=== PATIENT | male | born 1955 | race Caucasian/White ===

== ENCOUNTER 2021-04-15 12:31 | Inpatient (IN) | payer SELFPAY ==
[2021-04-15] MEDS ORDERED: SODIUM CHLORIDE 0.9% 1,000 ML IV STA (12:50)
--- NOTE | 2021-04-15 12:55 | ED ---
General Adult HPI - General Chief complaint: Weakness Stated complaint: Neuro Symptoms Time Seen by Provider: 04/15/21 12:35 Source: patient, RN notes reviewed, old records reviewed Mode of arrival: ambulatory Limitations: no limitations - History of Present Illness Initial comments: This is a 65-year-old male presents emergency department with his 2 sons. Son states for at least a month she's had left leg weakness and slurred speech is been ongoing for at least a month as well patient has refused to come to the emergency department. Patient is a drinker. Patient also is a smoker. Son states she's lost 30 patient denies any pounds over the last 6 months. Patient denies any headache patient denies any upper extremity weakness. Patient denies chest pain palpitations and he is denying shortness of breath but son states he does appear more short of breath than normal. Patient denies any abdominal pain. Patient doesn't believe he lost much weight his son states but he does look very cachectic. Patient denies any recent fever chills. Patient denies any drug use. Patient's main complaint now is slurred speech and left leg weakness. - Related Data Home Medications Medication Instructions Recorded Confirmed amLODIPine BESYLATE/BENAZEPRIL 1 cap PO DAILY 04/15/21 04/15/21 [Lotrel 10-20 MG] Allergies Allergy/AdvReac Type Severity Reaction Status Date / Time No Known Allergies Allergy Verified 04/15/21 14:08 Review of Systems ROS Statement: Those systems with pertinent positive or pertinent negative responses have been documented in the HPI. ROS Other: All systems not noted in ROS Statement are negative. Past Medical History Past Medical History: CVA/TIA, Hypertension History of Any Multi-Drug Resistant Organisms: None Reported Past Surgical History: No Surgical Hx Reported Past Psychological History: No Psychological Hx Reported Smoking Status: Current every day smoker Past Alcohol Use History: Daily Past Drug Use History: None Reported General Exam - General Exam Comments Initial Comments: GENERAL: Patient is well-developed and well-nourished. Patient is nontoxic and well- hydrated and is in mild distress. ENT: Neck is soft and supple. No significant lymphadenopathy is noted. Oropharynx is clear. Moist mucous membranes. Neck has full range of motion without eliciting any pain. EYES: The sclera were anicteric and conjunctiva were pink and moist. Extraocular movements were intact and pupils were equal round and reactive to light. Eyelids were unremarkable. PULMONARY: Unlabored respirations. Good breath sounds bilaterally. No audible rales rhonchi or wheezing was noted. CARDIOVASCULAR: There is a regular rate and rhythm without any murmurs gallops or rubs. ABDOMEN: Soft and nontender with normal bowel sounds. SKIN: Skin is clear with no lesions or rashes and otherwise unremarkable. NEUROLOGIC: Patient is alert and oriented x3. Patient has slurred speech. Patient's cranial nerves II through XII are grossly intact. Patient's left leg has no dorsi and plantar flexion and his weakness at the hip MUSCULOSKELETAL: Patient has weakness of the left leg. LYMPHATICS: No significant lymphadenopathy is noted PSYCHIATRIC: Normal psychiatric evaluation. Limitations: no limitations Course Vital Signs 04/15/21 04/15/21 04/15/21 12:33 14:01 15:06 Temperature 97.8 F Pulse Rate 98 98 110 H Respiratory 18 18 18 Rate Blood Pressure 138/82 158/89 139/92 O2 Sat by Pulse 95 93 L 92 L Oximetry Medical Decision Making - Medical Decision Making EKG shows a normal sinus rhythm at 97 bpm VA interval is on a 38 QRS is 70 QT interval 332 QTC is 421. Patient's EKG shows no ST segment elevation or depression. Patient's CAT scan shows no acute abnormality. Patient's x-ray the chest shows no acute abnormalities. I spoke with some physicians Dr. hermosillo in bed and he agreed to admit the patient admitted the patient wrote admitting orders and consult neurology. - Lab Data Result diagrams: 04/15/21 13:15 04/15/21 13:15 Lab Results 04/15/21 04/15/21 04/15/21 Range/Units 13:15 13:15 13:15 WBC 8.1 (3.8-10.6) k/uL RBC 4.90 (4.30-5.90) m/uL Hgb 16.1 (13.0-17.5) gm/dL Hct 46.4 (39.0-53.0) % MCV 94.8 (80.0-100.0) fL MCH 32.9 (25.0-35.0) pg MCHC 34.7 (31.0-37.0) g/dL RDW 13.3 (11.5-15.5) % Plt Count 284 (150-450) k/uL MPV 6.4 Neutrophils % 74 % Lymphocytes % 15 % Monocytes % 7 % Eosinophils % 1 % Basophils % 1 % Neutrophils # 6.0 (1.3-7.7) k/uL Lymphocytes # 1.2 (1.0-4.8) k/uL Monocytes # 0.6 (0-1.0) k/uL Eosinophils # 0.1 (0-0.7) k/uL Basophils # 0.1 (0-0.2) k/uL PT 10.1 (9.0-12.0) sec INR 0.9 (<1.2) APTT 25.4 (22.0-30.0) sec Sodium (137-145) mmol/L Potassium (3.5-5.1) mmol/L Chloride (98-107) mmol/L Carbon Dioxide (22-30) mmol/L Anion Gap mmol/L BUN (9-20) mg/dL Creatinine (0.66-1.25) mg/dL Est GFR (CKD-EPI)AfAm (>60 ml/min/1.73 sqM) Est GFR (CKD-EPI)NonAf (>60 ml/min/1.73 sqM) Glucose (74-99) mg/dL Plasma Lactic Acid Shree (0.7-2.0) mmol/L Calcium (8.4-10.2) mg/dL Magnesium (1.6-2.3) mg/dL Total Bilirubin (0.2-1.3) mg/dL AST (17-59) U/L ALT (4-49) U/L Alkaline Phosphatase (38-126) U/L Ammonia (<30) umol/L Troponin I (0.000-0.034) ng/mL Total Protein (6.3-8.2) g/dL Albumin (3.5-5.0) g/dL Urine Color Light Yellow Urine Appearance Cloudy (Clear) Urine pH 7.0 (5.0-8.0) Ur Specific [place] 1.010 (1.001-1.035) Urine Protein Negative (Negative) Urine Glucose (UA) Negative (Negative) Urine Ketones Negative (Negative) Urine Blood Negative (Negative) Urine Nitrite Negative (Negative) Urine Bilirubin Negative (Negative) Urine Urobilinogen <2.0 (<2.0) mg/dL Ur Leukocyte Esterase Negative (Negative) Urine RBC 1 (0-5) /hpf Urine WBC 2 (0-5) /hpf Ur Squamous Epith Cells <1 (0-4) /hpf Amorphous Sediment Rare H (None) /hpf Urine Mucus Rare H (None) /hpf Urine Opiates Screen (NotDetected) Ur Oxycodone Screen (NotDetected) Urine Methadone Screen (NotDetected) Ur Propoxyphene Screen (NotDetected) Ur Barbiturates Screen (NotDetected) U Tricyclic Antidepress (NotDetected) Ur Phencyclidine Scrn (NotDetected) Ur Amphetamines Screen (NotDetected) U Methamphetamines Scrn (NotDetected) U Benzodiazepines Scrn (NotDetected) Urine Cocaine Screen (NotDetected) U Marijuana (THC) Screen (NotDetected) 04/15/21 04/15/21 04/15/21 Range/Units 13:15 13:15 13:15 WBC (3.8-10.6) k/uL RBC (4.30-5.90) m/uL Hgb (13.0-17.5) gm/dL Hct (39.0-53.0) % MCV (80.0-100.0) fL MCH (25.0-35.0) pg MCHC (31.0-37.0) g/dL RDW (11.5-15.5) % Plt Count (150-450) k/uL MPV Neutrophils % % Lymphocytes % % Monocytes % % Eosinophils % % Basophils % % Neutrophils # (1.3-7.7) k/uL Lymphocytes # (1.0-4.8) k/uL Monocytes # (0-1.0) k/uL Eosinophils # (0-0.7) k/uL Basophils # (0-0.2) k/uL PT (9.0-12.0) sec INR (<1.2) APTT (22.0-30.0) sec Sodium 130 L (137-145) mmol/L Potassium 4.8 (3.5-5.1) mmol/L Chloride 91 L (98-107) mmol/L Carbon Dioxide 37 H (22-30) mmol/L Anion Gap 2 mmol/L BUN 8 L (9-20) mg/dL Creatinine 0.33 L (0.66-1.25) mg/dL Est GFR (CKD-EPI)AfAm >90 (>60 ml/min/1.73 sqM) Est GFR (CKD-EPI)NonAf >90 (>60 ml/min/1.73 sqM) Glucose 110 H (74-99) mg/dL Plasma Lactic Acid Shree 1.3 (0.7-2.0) mmol/L Calcium 9.9 (8.4-10.2) mg/dL Magnesium 2.0 (1.6-2.3) mg/dL Total Bilirubin 0.8 (0.2-1.3) mg/dL AST 33 (17-59) U/L ALT 18 (4-49) U/L Alkaline Phosphatase 57 (38-126) U/L Ammonia <9 (<30) umol/L Troponin I <0.012 (0.000-0.034) ng/mL Total Protein 7.2 (6.3-8.2) g/dL Albumin 4.6 (3.5-5.0) g/dL Urine Color Urine Appearance (Clear) Urine pH (5.0-8.0) Ur Specific [place] (1.001-1.035) Urine Protein (Negative) Urine Glucose (UA) (Negative) Urine Ketones (Negative) Urine Blood (Negative) Urine Nitrite (Negative) Urine Bilirubin (Negative) Urine Urobilinogen (<2.0) mg/dL Ur Leukocyte Esterase (Negative) Urine RBC (0-5) /hpf Urine WBC (0-5) /hpf Ur Squamous Epith Cells (0-4) /hpf Amorphous Sediment (None) /hpf Urine Mucus (None) /hpf Urine Opiates Screen (NotDetected) Ur Oxycodone Screen (NotDetected) Urine Methadone Screen (NotDetected) Ur Propoxyphene Screen (NotDetected) Ur Barbiturates Screen (NotDetected) U Tricyclic Antidepress (NotDetected) Ur Phencyclidine Scrn (NotDetected) Ur Amphetamines Screen (NotDetected) U Methamphetamines Scrn (NotDetected) U Benzodiazepines Scrn (NotDetected) Urine Cocaine Screen (NotDetected) U Marijuana (THC) Screen (NotDetected) 07/05/21 Range/Units 13:15 WBC (3.8-10.6) k/uL RBC (4.30-5.90) m/uL Hgb (13.0-17.5) gm/dL Hct (39.0-53.0) % MCV (80.0-100.0) fL MCH (25.0-35.0) pg MCHC (31.0-37.0) g/dL RDW (11.5-15.5) % Plt Count (150-450) k/uL MPV Neutrophils % % Lymphocytes % % Monocytes % % Eosinophils % % Basophils % % Neutrophils # (1.3-7.7) k/uL Lymphocytes # (1.0-4.8) k/uL Monocytes # (0-1.0) k/uL Eosinophils # (0-0.7) k/uL Basophils # (0-0.2) k/uL PT (9.0-12.0) sec INR (<1.2) APTT (22.0-30.0) sec Sodium (137-145) mmol/L Potassium (3.5-5.1) mmol/L Chloride (98-107) mmol/L Carbon Dioxide (22-30) mmol/L Anion Gap mmol/L BUN (9-20) mg/dL Creatinine (0.66-1.25) mg/dL Est GFR (CKD-EPI)AfAm (>60 ml/min/1.73 sqM) Est GFR (CKD-EPI)NonAf (>60 ml/min/1.73 sqM) Glucose (74-99) mg/dL Plasma Lactic Acid Shree (0.7-2.0) mmol/L Calcium (8.4-10.2) mg/dL Magnesium (1.6-2.3) mg/dL Total Bilirubin (0.2-1.3) mg/dL AST (17-59) U/L ALT (4-49) U/L Alkaline Phosphatase (38-126) U/L Ammonia (<30) umol/L Troponin I (0.000-0.034) ng/mL Total Protein (6.3-8.2) g/dL Albumin (3.5-5.0) g/dL Urine Color Urine Appearance (Clear) Urine pH (5.0-8.0) Ur Specific [place] (1.001-1.035) Urine Protein (Negative) Urine Glucose (UA) (Negative) Urine Ketones (Negative) Urine Blood (Negative) Urine Nitrite (Negative) Urine Bilirubin (Negative) Urine Urobilinogen (<2.0) mg/dL Ur Leukocyte Esterase (Negative) Urine RBC (0-5) /hpf Urine WBC (0-5) /hpf Ur Squamous Epith Cells (0-4) /hpf Amorphous Sediment (None) /hpf Urine Mucus (None) /hpf Urine Opiates Screen Not Detected (NotDetected) Ur Oxycodone Screen Not Detected (NotDetected) Urine Methadone Screen Not Detected (NotDetected) Ur Propoxyphene Screen Not Detected (NotDetected) Ur Barbiturates Screen Not Detected (NotDetected) U Tricyclic Antidepress Not Detected (NotDetected) Ur Phencyclidine Scrn Not Detected (NotDetected) Ur Amphetamines Screen Not Detected (NotDetected) U Methamphetamines Scrn Not Detected (NotDetected) U Benzodiazepines Scrn Not Detected (NotDetected) Urine Cocaine Screen Not Detected (NotDetected) U Marijuana (THC) Screen Not Detected (NotDetected) Disposition Clinical Impression: CVA (cerebral vascular accident) Disposition: ADMITTED IP TO THIS HOSP Referrals: Torito Vanegas MD [Primary Care Provider] - 1-2 days Time of Disposition: 15:46
--- NOTE | 2021-04-15 13:35 | CT ---
EXAMINATION TYPE: CT brain wo con for TPA DATE OF EXAM: 04/15/2021 COMPARISON: None HISTORY: 65-year-old male Slurred speech and weakness. TECHNIQUE: Examination was done in axial plane without intravenous contrast. Coronal and sagittal r econstructions performed. CT DLP: 1084.4 mGycm Automated exposure control for dose reduction was used. FINDINGS: There is no evidence of acute intracranial hemorrhage, acute ischemic changes, mass, mass-effect, or extra-axial fluid collection. There is no effacement of cerebral sulci or basal subarachnoid cister ns. There is no hydrocephalus. There is no midline shift. Garza-white matter distinction is preserv ed. Moderate patchy white matter hypodensities in both cerebral hemispheres. Severe complete opacification left maxillary sinus. Hypoplastic right frontal sinus. Mastoid air cell s well pneumatized. Cerumen within the bilateral external auditory canals. Orbits and globes appear i ntact. IMPRESSION: No acute intracranial abnormality seen. Moderate burden of chronic small vessel ischemic disease. Sev ere chronic left maxillary sinusitis. Consider outpatient ENT referral if symptomatic.
[2021-04-15 13:52] LABS: Basophils # (A) 0.1 k/uL (0-0.2); Basophils % (A) 1 %; Eosinophils # (A) 0.1 k/uL (0-0.7); Eosinophils % (A) 1 %; HCT 46.4 % (39.0-53.0); HGB 16.1 gm/dL (13.0-17.5); Lymphocytes # (A) 1.2 k/uL (1.0-4.8); Lymphocytes % (A) 15 %; MCH 32.9 pg (25.0-35.0); MCHC 34.7 g/dL (31.0-37.0); MCV 94.8 fL (80.0-100.0); Mean Platelet Volume 6.4; Monocytes # (A) 0.6 k/uL (0-1.0); Monocytes % (A) 7 %; Neutrophils % (A) 74 %; Platelet Count 284 k/uL (150-450); RDW 13.3 % (11.5-15.5); WBC 8.1 k/uL (3.8-10.6)
--- NOTE | 2021-04-15 14:00 | XR ---
EXAMINATION TYPE: XR chest 2V DATE OF EXAM: 04/15/2021 COMPARISON: NONE HISTORY: Altered mental status TECHNIQUE: Frontal and lateral views of the chest are obtained. FINDINGS: Heart size is within normal limits. Multiple overlying leads. No focal consolidation, pneu mothorax or pleural effusion. Degenerative changes of the thoracic spine. IMPRESSION: 1. No acute pulmonary disease.
[2021-04-15 14:02] LABS: INR 0.9 (<1.2); Lactic Acid, Venous 1.3 mmol/L (0.7-2.0); Partial Thromboplastin Time 25.4 sec (22.0-30.0); Prothrombin Time 10.1 sec (9.0-12.0)
--- NOTE | 2021-04-15 14:02 | XR ---
EXAMINATION TYPE: XR lumbar spine 2 or 3V DATE OF EXAM: 04/15/2021 CLINICAL HISTORY: Altered mental status, slurred speech, weakness and low back pain. TECHNIQUE: Frontal, lateral and coned-down views of the lumbar spine, 3 views of the lumbar spine are obtained. COMPARISON: None FINDINGS: There are 5 nonrib-bearing lumbar type vertebral bodies. There is narrowing of the interver tebral disc spaces at L3-4, L4-5 and L5-S1. There is dextrocurvature of the lumbar spine. There is st raightening of the normal lumbar lordosis likely due to positioning or muscle spasm. Mild retrolisthe sis of L4 on L5. Multiple anterior osteophytes are seen including L3, L4 and L5. Degenerative changes of the facets. There is retrolisthesis of L5 on S1, approximately grade 1. IMPRESSION: 1. Mild to moderate degenerative changes of the lumbar spine. No compression fracture of the lumbar s pine.
[2021-04-15 14:05] LABS: ALT 18 U/L (4-49); African American GFR (CKD) >90 (>60 ml/min/1.73 sqM); Albumin 4.6 g/dL (3.5-5.0); Anion Gap 2 mmol/L; Blood Urea Nitrogen 8 mg/dL (9-20); Calcium 9.9 mg/dL (8.4-10.2); Carbon Dioxide 37 mmol/L (22-30); Chloride 91 mmol/L (98-107); Glucose 110 mg/dL (74-99); Non-African American GFR(CKD) >90 (>60 ml/min/1.73 sqM); Sodium 130 mmol/L (137-145); Total Bilirubin 0.8 mg/dL (0.2-1.3); Total Protein 7.2 g/dL (6.3-8.2)
[2021-04-15 14:07] LABS: Potassium 4.8 mmol/L (3.5-5.1)
[2021-04-15 14:08] LABS: AST 33 U/L (17-59); Alkaline Phosphatase 57 U/L (38-126)
[2021-04-15 14:24] LABS: Amorphous Sediment,Urine Rare /hpf; Appearance,Urine Cloudy (Clear); Bilirubin,Urine Negative (Negative); Blood,Urine Negative (Negative); Color,Urine Light Yellow; Glucose,Urine (UA) Negative (Negative); Ketones,Urine Negative (Negative); Leukocyte Esterase,Urine Negative (Negative); Mucus,Urine Rare /hpf; Nitrite,Urine Negative (Negative); Protein,Urine Negative (Negative); RBC,Urine 1 /hpf (0-5); Squamous Epithelial Cell,Urine <1 /hpf (0-4); Urobilinogen,Urine <2.0 mg/dL (<2.0); WBC,Urine 2 /hpf (0-5)
[2021-04-15 14:32] LABS: Amphetamine Screen,Urine Not Detected (NotDetected); Barbiturate Screen,Urine Not Detected (NotDetected); Benzodiazepines Screen,Urine Not Detected (NotDetected); Cocaine Screen,Urine Not Detected (NotDetected); Methadone Screen, Urine Not Detected (NotDetected); Opiate Screen,Urine Not Detected (NotDetected); Oxycodone Screen, Urine Not Detected (NotDetected); Phencyclidine Screen,Urine Not Detected (NotDetected); Tricyclic Antidepressant,Urine Not Detected (NotDetected); Urn Cannabinoid Scrn Not Detected (NotDetected)
[2021-04-15] MEDS ORDERED: ASPIRIN 81 MG PO STA (15:52)
--- NOTE | 2021-04-15 15:54 | P.HPIM ---
History of Present Illness H&P Date: 04/15/21 The patient is 65-year-old male with a PMH of hypertension, tobacco abuse, and alcohol abuse who was brought into the emergency room by his 2 sons due to impaired speech and right sided weakness. The history is supplemented by the sons at the bedside. Patient reports that he initially noticed that his right foot started to drag on the floor roughly 6-8 months ago. He then noticed that his right shoulder appeared to be weaker and tense. He did not think much of it though his sons noted that he gradually became weaker, until he started using a walker a few months ago. Patient then also had gradually worsening slurring of speech. The son reports that his speech became significantly worse over the past 2-3 weeks, where he is now difficult to understand. Patient also reports a poor appetite for the past 6 months and a subsequent 30-40 pound weight loss. Patient reports a significant long-standing history of tobacco abuse with 1-2 packs per day for over 40 years. He also has a history of significant alcohol abuse with drinking at least a 12 pack of beer daily after work for the past 30- 40 years. The patient denied chest discomfort, shortness of breath, headache. Also denied visual disturbances, nausea, vomiting, abdominal pain. Patient notes that he last saw his primary care physician roughly a year ago. Patient underwent an extensive evaluation in the emergency room with brain CT showing chronic small vessel ischemic disease. EKG revealed normal sinus rhythm at 97 bpm. Chest x-ray was unremarkable. With lumbar spine x-rays showing mild to moderate degenerative changes of the lumbar spine. Laboratory evaluation was remarkable for a sodium of 1:30, chloride 91, CO2 37, BUN 8, creatinine 0.33, and glucose 110. Review of systems: Pertinent positives and negatives as discussed in HPI, a complete review of systems was performed and all other systems are negative. Physical examination: General: Chronically ill-appearing thin male, non toxic, no distress, appears older than stated age, frail Derm: no unusual rashes/lesions no unusual ecchymoses, warm, dry Head: atraumatic, normocephalic, symmetric Eyes: EOMI, no lid lag, anicteric sclera, pupils equal round reactive to light ENT: Nose and ears atraumatic, no thrush, no pharyngeal erythema Neck: No thyromegaly, no cervical lymphadenopathy, trachea midline, supple Mouth: no lip lesion, mucus membranes moist, very poor dentition Cardiovascular: S1S2 reg, no murmur, positive posterior tibial pulse bilateral, no edema, capillary refill less than 2 seconds Lungs: CTA bilateral, no rhonchi, no rales , no accessory muscle use Abdominal: soft, nontender to palpation, no guarding, no appreciable organomega ly, normal bowel sounds Ext: Thin extremities, bilateral upper extremity distal strength 5 out of 5 with flexion and extension of elbow and wrist, limited range of motion of right shoulder across all planes, right lower extremity strength 2 out of 5 proximal and distal with right foot drop, left lower extremity 4 out of 5 strength Neuro: CN II-XI grossly intact, light touch intact all 4 extremities Psych: Alert, oriented, appropriate affect Assessment/plan Right-sided weakness with right foot drop, right shoulder weakness, and dysarthria -Suspected secondary to multiple CVAs over the past year -Obtain echocardiogram, carotid duplex, cardiac monitoring -Neurology consult -Continue with aspirin -Fall precautions -PT evaluation -Speech evaluation Alkalosis -Obtain ABG Hypertension -Continue with home medications Tobacco and alcohol abuse -Strongly advised on the importance of cessation Hyponatremia, suspected secondary poor oral intake -Dietitian consult -Monitor BMP DVT prophylaxis -Heparin subq The patient is admitted with an anticipated greater than 2 midnight stay for evaluation of CVA CODE STATUS: Full Code Discussed with: Patient Anticipated discharge date: 2-[address]: Home/SNF A total of 50 minutes was spent on the care of this complex patient more than 50% of the time was spent in counseling and care coordination. Past Medical History Past Medical History: CVA/TIA, Hypertension History of Any Multi-Drug Resistant Organisms: None Reported Past Surgical History: No Surgical Hx Reported Past Psychological History: No Psychological Hx Reported Smoking Status: Current every day smoker Past Alcohol Use History: Daily Past Drug Use History: None Reported Medications and Allergies Home Medications Medication Instructions Recorded Confirmed Type amLODIPine BESYLATE/BENAZEPRIL 1 cap PO DAILY 04/15/21 04/15/21 History [Lotrel 10-20 MG] Allergies Allergy/AdvReac Type Severity Reaction Status Date / Time No Known Allergies Allergy Verified 04/15/21 14:08 Physical Exam Vitals: Vital Signs Temp Pulse Resp BP Pulse Ox 04/15/21 15:06 110 H 18 139/92 92 L 04/15/21 14:01 98 18 158/89 93 L 04/15/21 12:33 97.8 F 98 18 138/82 95 Intake and Output 04/15/21 04/15/21 04/15/21 06:59 14:59 22:59 Other: Weight 58.967 kg Results CBC & Chem 7: 04/15/21 13:15 04/15/21 13:15 Labs: Abnormal Lab Results - Last 24 Hours (Table) 04/15/21 04/15/21 Range/Units 13:15 13:15 Sodium 130 L (137-145) mmol/L Chloride 91 L (98-107) mmol/L Carbon Dioxide 37 H (22-30) mmol/L BUN 8 L (9-20) mg/dL Creatinine 0.33 L (0.66-1.25) mg/dL Glucose 110 H (74-99) mg/dL Amorphous Sediment Rare H (None) /hpf Urine Mucus Rare H (None) /hpf
[2021-04-15] MEDS ORDERED: ATORVASTATIN 80 MG TAB PO STA (16:12)
--- NOTE | 2021-04-15 16:46 | US ---
EXAMINATION TYPE: US carotid duplex BILAT DATE OF EXAM: 04/15/2021 COMPARISON: NONE CLINICAL HISTORY: 65-year-old male CVA. TECHNIQUE: Carotid duplex ultrasound examination. Indirect Doppler criteria was utilized. FINDINGS: EXAM MEASUREMENTS: RIGHT: Peak Systolic Velocity (PSV) cm/sec ----- Right CCA: 72.1 ----- Right ICA: 65.7 ----- Right ECA: 79.8 ICA/CCA ratio: 0.9 RIGHT: End Diastole cm/sec ----- Right CCA: 19.5 ----- Right ICA: 18.2 ----- Right ECA: 9.6 LEFT: Peak Systolic Velocity (PSV) cm/sec ----- Left CCA: 64.7 ----- Left ICA: 89.9 ----- Left ECA: 80.3 ICA/CCA ratio: 1.4 LEFT: End Diastole cm/sec ----- Left CCA: 18.7 ----- Left ICA: 30.8 ----- Left ECA: 14.1 VERTEBRALS (direction of flow): Right Vertebral: Antegrade Left Vertebral: Antegrade Rhythm: Normal Closing Agent notes: No significant stenosis. IMPRESSION: No hemodynamically significant internal carotid artery stenosis on either side. Criteria for Assigning % of Stenosis / Diameter reduction (Estimation based on the indirect measurements of the internal carotid artery velocities (ICA PSV). 1. Normal (no stenosis)=ICA PSV < 125 cm/s: ratio < 2.0: ICA EDV<40 cm/s. 2. Less than 50% stenosis=ICA PSV < 125 cm/s: ratio < 2.0: ICA EDV<40 cm/s. 3. 50 to 69% stenosis=ICA PSV of 125 to 230 cm/s: ration 2.0 ? 4.0: ICA EDV 40-100 cm/s. 4. Greater than 70% stenosis to near occlusion= ICA PSV > 230 cm/s: ratio > 4.0: ICA EDV > 100 cm/s. 5. Near occlusion= ICA PSV velocities may be low or undetectable: variable ratio and ICA EDV. 6. Total occlusion=unable to detect flow.
[2021-04-15] MEDS: HEPARIN SODIUM,PORCINE/PF 5,000 UNIT/0.5 ML SYRINGE SQ SCH ×2 (16:51→23:20)
[2021-04-15 17:10] LABS: ABG Base Excess 8.3 mmol/L; ABG HCO3 33 mmol/L (21-25); ABG Oxygen Saturation 93.1 % (94-97); ABG PCO2 53 mmHg (35-45); ABG PH 7.41 (7.35-7.45); ABG PO2 65 mmHg (83-108); ABG TCO2 35 mmol/L (19-24); Allen Test Performed? Yes
[2021-04-15] MEDS: NICOTINE 21MG/24HR PATCH TRANSDERM SCH (23:20)
[2021-04-16] MEDS: NICOTINE 21MG/24HR PATCH TRANSDERM SCH (08:07)
[2021-04-16] MEDS: lisinopriL 20 MG TAB PO SCH (08:07)
[2021-04-16] MEDS: amLODIPine 10 MG TAB PO SCH (08:07)
[2021-04-16] MEDS: ASPIRIN 81 MG PO SCH (08:07)
[2021-04-16] MEDS: HEPARIN SODIUM,PORCINE/PF 5,000 UNIT/0.5 ML SYRINGE SQ SCH ×3 (08:07→23:28)
[2021-04-16 08:21] LABS: African American GFR (CKD) >90 (>60 ml/min/1.73 sqM); Anion Gap 1 mmol/L; Blood Urea Nitrogen 6 mg/dL (9-20); Calcium 9.7 mg/dL (8.4-10.2); Carbon Dioxide 38 mmol/L (22-30); Chloride 92 mmol/L (98-107); Glucose 101 mg/dL (74-99); Non-African American GFR(CKD) >90 (>60 ml/min/1.73 sqM); Sodium 131 mmol/L (137-145)
[2021-04-16] MEDS: IPRATROPIUM-ALBUTEROL 3 ML NEB INHALATION PRN ×2 (08:35→18:55)
[2021-04-16] MEDS ORDERED: ATORVASTATIN 80 MG TAB PO SCH (09:00)
[2021-04-16] MEDS ORDERED: THIAMINE 100 MG/ML 2 ML VIAL IM STA (10:33)
[2021-04-16] MEDS ORDERED: LORazepam 2 MG/ML INJ IV PRN ×3 (10:33)
--- NOTE | 2021-04-16 11:39 | P.PN ---
Subjective Progress Note Date: 04/16/21 Patient was seen and evaluated by me today. His speech is slurred and hard to understand. He is awake and alert. He does not have any complaints. No acute events overnight reported by nursing staff. Objective - Vital Signs Vital signs: Vital Signs Temp 98.2 F 04/16/21 08:05 Pulse 86 04/16/21 08:45 Resp 18 04/16/21 08:05 BP 147/83 04/16/21 08:05 Pulse Ox 91 L 04/16/21 08:05 Intake & Output 04/15/21 04/16/21 04/16/21 18:59 06:59 18:59 Intake Total 960 120 Output Total 450 Balance 960 -330 Weight 58.967 kg 37 kg 37 kg Intake: Oral 960 120 Output: Urine 450 Other: Voiding Method Urinal Urinal # Voids 300 2 - Exam General: The patient is awake and alert, in no distress Eye: there is normal conjunctiva bilaterally. Neck: The neck is supple, there is no JVD. Cardiovascular: Normal S1-S2, no S3-S4, no murmurs. Respiratory: Lungs clear to auscultation bilaterally Gastrointestinal: Abdomen is soft, nontender Musculoskeletal: There is no pedal edema. Neurological:. Speech is normal. Skin: Skin is warm and dry - Labs CBC & Chem 7: 04/15/21 13:15 04/16/21 07:26 Labs: Abnormal Lab Results - Last 24 Hours (Table) 04/15/21 04/15/21 04/15/21 Range/Units 13:15 13:15 16:49 ABG pCO2 53 H (35-45) mmHg ABG pO2 65 L (83-108) mmHg ABG HCO3 33 H (21-25) mmol/L ABG Total CO2 35 H (19-24) mmol/L ABG O2 Saturation 93.1 L (94-97) % Sodium 130 L (137-145) mmol/L Chloride 91 L (98-107) mmol/L Carbon Dioxide 37 H (22-30) mmol/L BUN 8 L (9-20) mg/dL Creatinine 0.33 L (0.66-1.25) mg/dL Glucose 110 H (74-99) mg/dL Amorphous Sediment Rare H (None) /hpf Urine Mucus Rare H (None) /hpf 04/16/21 Range/Units 07:26 ABG pCO2 (35-45) mmHg ABG pO2 (83-108) mmHg ABG HCO3 (21-25) mmol/L ABG Total CO2 (19-24) mmol/L ABG O2 Saturation (94-97) % Sodium 131 L (137-145) mmol/L Chloride 92 L (98-107) mmol/L Carbon Dioxide 38 H (22-30) mmol/L BUN 6 L (9-20) mg/dL Creatinine 0.29 L (0.66-1.25) mg/dL Glucose 101 H (74-99) mg/dL Amorphous Sediment (None) /hpf Urine Mucus (None) /hpf Assessment and Plan Assessment: This is a 65 -year-old male with past medical history noted below significant for heavy alcohol abuse who presented to the hospital with acute on chronic slurred speech and weakness progressing over several weeks to several months. Patient was evaluated in the ER and admitted to the hospital for further management of his medical problems noted below. 1. Slurred speech, computed tomography scan of the brain showed no acute findings. Awaiting MRI. Speech pathology consulted. Swallow study ordered. Questionable underlying neurologic damage secondary to chronic alcohol use. 2. Generalized weakness worse on the right side of the body. CVA ruled out. Computed tomography scan of the brain showed chronic small ischemic changes. Carotid Doppler with no hemodynamically significant stenosis. Echocardiogram ordered. 3. Heavy alcohol abuse, patient reported drinking 10 beers daily for 20 years. He was counseled extensively to quit. CIWA protocol as needed. Started on thiamine and multivitamins. 4. Chronic protein/calorie malnutrition, secondary to heavy alcohol use. Start ensure 3 times a day. Consult dietitian for further evaluation. 5. Essential hypertension, blood pressure well-controlled. Continue current regimen. Today, I reviewed his medication list and lab work results. Patient was started on aspirin and Lipitor. I would check thyroid function tests, vitamin B12, and folate level. Appreciate neurology recommendations. Repeat lab work in the morning. PT/OT evaluation.
[2021-04-16] MEDS: MULTIVITAMINS, THERA 1 EACH TAB PO SCH (11:50)
--- NOTE | 2021-04-16 12:01 | ECHOF ---
Referral Reason:CVA MEASUREMENTS -------- HEIGHT: 175.3 cm WEIGHT: 36.7 kg BP: 122/78 IVSd: 1.1 cm (0.6 - 1.1) LVIDd: 2.9 cm (3.9 - 5.3) LVPWd: 1.6 cm (0.6 - 1.1) IVSs: 1.6 cm LVIDs: 2.0 cm LVPWs: 1.4 cm LA Diam: 3.7 cm (2.7 - 3.8) Ao Diam: 3.0 cm (2.0 - 3.7) RAP: 5.00 mmHg RVSP: 13.54 mmHg FINDINGS -------- Sinus rhythm. This was a technically difficult study with suboptimal views. Parasternal and apical views unable t o be obtained. Entire study performed from subcostal window. Left ventricular wall thickness is normal. Overall left ventricular systolic function is normal wit h, an EF between 55 - 60 %. Limited Views, poor images. The RV was not well visualized. The left atrium is normal in size. The right atrial size is normal. Interatrial and interventricular septum intact. The aortic valve is trileaflet and appears structurally normal. There is mild aortic valve sclerosi s. There is no evidence of aortic regurgitation. No mitral regurgitation. Trace tricuspid regurgitation present. There is no evidence of pulmonary hypertension. The right ventricular systolic pressure, as measured by Doppler, is 13.54mmHg. There is no pulmonic regurgitation present. The aortic root size is normal. Normal inferior vena cava with normal inspiratory collapse consistent with estimated right atrial pre ssure of 5 mmHg. There is a trivial pericardial effusion present. CONCLUSIONS -------- 1. Left ventricular wall thickness is normal. 2. Overall left ventricular systolic function is normal with, an EF between 55 - 60 %. 3. There is mild aortic valve sclerosis. 4. Trace tricuspid regurgitation present. 5. There is a trivial pericardial effusion present. AGRISCIENCE TECHNOLOGY INSTRUCTOR: Iona Romero RDCS
[2021-04-16 12:47] LABS: Chol/HDL Ratio 2.46; Cholesterol 236 mg/dL (0-200); LDL Cholesterol,Calculated 115.6 mg/dL (0.0-131.0)
--- NOTE | 2021-04-16 12:53 | P.CNNES ---
History of Present Illness Consult date: 04/16/21 Requesting physician: Tomas Sanchez Reason for Consult: left leg weakness and slurred speech History of Present Illness: This is a 65-year-old gentleman with medical history of hypertension chronic alcohol use and tobacco use who presented to the emergency department on 04/15/2021 with his 2 sons because of right leg weakness and slurring the speech that has been going on for 3 months. According to patient he stated that his right leg weakness has been going on for at least 3 months and feels he has a right foot drop. Then he noticed that he's having some speech difficulty for the last 1-1/2 months. He said that he's been coughing once in a while. He denies of any choking episodes. Denies of any diplopia, ptsosis of eyes. He denies worsening of the motor strength and after prolonged use or towards the end of the the day or night. He denies of any numbness tingling. Denies of any neck pain or lower back pain that. Denies of any bladder or bowel incontinence or issues. He feels like he has lost about 25 pounds in the last 1 year that he thinks and he attributes to his poor diet. He said that he drinks 10 cans of beer on a daily basis and he's been drinking for years. He's been smoking a pac k and a half a day for at least more than 40 years. He denies of any headache. Denies of any strokes in the past. Denies of the any fever recently prior to his sickness that he recalls. He has been using a walker at home because of his leg weakness. He has been refusing to seek medical attention. Per the ED note it is reported that the patient has lost 30 pounds in the last 6 month. Patient home medication as amlodipine. Some other workup in the hospital consisted of: Initial vital signs: Blood pressure of 138/82, heart rate of 98, respiratory of 18, temperature of 97.8 Fahrenheit oral and pulse ox of 95% at room air. During the hospital stay his oxygen has been as low as 90% at room air. CBC with differential is unremarkable. Initial sodium is 130 which is a mildly low chloride is 91 which is mildly low at. Otherwise the rest of the chemistry panel seems unremarkable. AST of 33 and ALT of 18 ammonia level is less than 9 which is within normal limits. Calcium is 9.9 and the magnesium is 2.0 which is within normal limits. Urine toxicology screen is not detected. CT of the head is reported as no acute intracranial Santana is seen. Moderate burden of chronic small vessel ischemic disease. Severe chronic left maxillary sinusitis. Consider outpatient ENT referral if symptomatic. Carotid duplex is reported as no hemodynamically significant internal carotid artery stenosis on either side. EKG is reported as normal sinus rhythm. Low voltage QRS. Nonspecific ST abnormality. Abnormal EKG. Lumbar x-ray is reported as mild to moderate degenerative changes of the lumbar spine. No compression fracture of the lumbar spine. Review of Systems Review of system: The 12 point system was reviewed and apparent positive and negative per HPI. Past Medical History Past Medical History: CVA/TIA, Hypertension History of Any Multi-Drug Resistant Organisms: None Reported Past Surgical History: No Surgical Hx Reported Past Psychological History: No Psychological Hx Reported Smoking Status: Current every day smoker Past Alcohol Use History: Daily Past Drug Use History: None Reported Medications and Allergies Home Medications Medication Instructions Recorded Confirmed Type amLODIPine BESYLATE/BENAZEPRIL 1 cap PO DAILY 04/15/21 04/15/21 History [Lotrel 10-20 MG] Allergies Allergy/AdvReac Type Severity Reaction Status Date / Time No Known Allergies Allergy Verified 04/15/21 14:08 Physical Examination - Vital Signs Vital Signs: Vital Signs Temp Pulse Pulse Resp BP BP Pulse Ox 04/16/21 08:45 86 04/16/21 08:38 90 04/16/21 08:05 98.2 F 90 18 147/83 91 L 04/16/21 04:00 77 18 122/78 90 L 04/15/21 22:27 98.2 F 84 18 142/72 93 L 04/15/21 19:07 98.3 F 89 20 104/73 93 L 04/15/21 16:47 97 18 123/84 94 L 04/15/21 16:04 101 H 18 116/74 92 L 04/15/21 15:06 110 H 18 139/92 92 L 04/15/21 14:01 98 18 158/89 93 L 04/15/21 12:33 97.8 F 98 18 138/82 95 Intake and Output 04/15/21 04/16/21 04/16/21 22:59 06:59 14:59 Intake Total 480 480 120 Output Total 450 Balance 480 480 -330 Intake: Oral 480 480 120 Output: Urine 450 Other: Voiding Method Urinal Urinal # Voids 300 2 Weight 58.967 kg 37 kg GENERAL: The patient is lying in bed and is not in acute distress and is cachectic. CHEST: The heart rate is regular rate rhythm. No murmurs to auscultation. No carotid bruit bilaterally. LUNG: Clear to auscultation bilaterally no wheezing noted throughout. Not labored breathing. ABDOMEN/GI: Bowel sounds present in all 4 quadrants. No tenderness to palpation throughout. NEUROLOGICAL: Higher mental function: The patient is awake, alert, oriented to self, place and time. Patient is following commands. No aphasia and no neglect. Cranial nerves: The pupils are round, equal and reactive to light and accommodation. Visual douglas are full to confrontation throughout. There is no ptosis of either eye. Extraocular movement is intact no nystagmus is noted. Facial sensation is normal to touch throughout. The facial strength is normal throughout. Hearing is normal bilaterally to hand rub. Tongue is atrophy with fasciulation. Has moderate severe dysarthria is noted. Motor: Gait was attempted but could not keep himself up and was hunched over. The strength (right/left) is shoulder is 3/5 bilaterally; left arm flexion and extension is 4-4+ while right is 4+-5-; bilateral hand black jack dealer is 5- b/l; hip flexors 3/4; hip flexor 4+/4+; knee extensor 4-+/5-; knee flexor 3-4/4+; ankle dorsiflexion 0/3; ankles plantar flexion 0/4. Atrophy to most of muscles but mostly right first dorsal interosseous (stated he had old injury in past). Decrease tone. There is fasciulation of bilateral deltoids, biceps muscles, thighs regions. Cerebellum: Normal finger to nose bilaterally. Sensation: Sensation is normal to touch throughout. Reflexes (right/left): triceps 1-2+/0-1; biceps 1/1; brachioradialis 0-1 b/l; patellar 1+/2-3+; ankles 1+/2+ Plantars are mute bilaterally. Results Urinalysis is negative for urinary tract infection. - Laboratory Findings CBC and BMP: 07/05/21 13:15 04/16/21 07:26 Abnormal Lab Findings: Abnormal Labs 04/15/21 04/15/21 04/15/21 13:15 13:15 16:49 ABG pCO2 53 H ABG pO2 65 L ABG HCO3 33 H ABG Total CO2 35 H ABG O2 Saturation 93.1 L Sodium 130 L Chloride 91 L Carbon Dioxide 37 H BUN 8 L Creatinine 0.33 L Glucose 110 H Amorphous Sediment Rare H Urine Mucus Rare H 04/16/21 07:26 ABG pCO2 ABG pO2 ABG HCO3 ABG Total CO2 ABG O2 Saturation Sodium 131 L Chloride 92 L Carbon Dioxide 38 H BUN 6 L Creatinine 0.29 L Glucose 101 H Amorphous Sediment Urine Mucus Assessment and Plan Assessment: * Significant dysarthria and weakness at different muscle distribution for the past 3 months (that seem throughout but most significant is right foot drop. On examination has atrophy, fasciculation of tongue and different muscles of upper and lower extremiteis): Seems more motor neuron disease. Rule out other underlying causes. Does not seem like stroke. * Mild hyponatremia (130 on presentation) likely due to the chronic alcohol use * Mild to moderate degenerative changes of the lumbar spine (per X-ray) * History of hypertension * Chronic Alcohol use (drinks 10 cans of beer daily) * Chronic nicotine use (smokes 1 1/2 PPD for >40 years) Plan: CT of the head is reported as no acute intracranial Santana is seen. Moderate burden of chronic small vessel ischemic disease. Severe chronic left maxillary sinusitis. Consider outpatient ENT referral if symptomatic. Carotid duplex is reported as no hemodynamically significant internal carotid artery stenosis on either side. The patient was given aspirin 81 mg once in the ED then was started on aspirin 81 mg and Lipitor 80 mg daily. I decreased the lipitor to 20mg daily I ordered MRI of the brain with and without, MRI Cervical and Lumbar region. If the MRI is negative for stroke or any lesions did not highly recommended the patient to follow-up in the motor neuron clinic/ALS clinic as an outpatient in an academic center within 1-2 weeks as an outpatient. 2-D echo, lipid panel and hemoglobin A1c are ordered by ED and primary team. are pending PT, OT and HOME CARE GIVER are consulted. I ordered alcohol level. Ordered TSH level, Vitamin B12, folate and Vitamin B6 level. Placed on Q4 hours neuro-checks. Continue on cardiac monitoring The primary team place the patient on thiamine 100 mg 1 tablet twice a day. Also the patient was started on CIWA protocol and will defer management to the primary team. Patient was counseled on tobacco cessation and alcohol cessation. The plan is discussed in details with the patient, primary attending and his nurse. Thank you for the consultation. Harish Esposito MD Neuro-Hospitalist Time with Patient: Greater than 30
--- NOTE | 2021-04-16 13:24 | FL ---
EXAMINATION TYPE: FL barium swallow w video DATE OF EXAM: 04/16/2021 MODIFIED SWALLOW / DEGLUTITION STUDY CLINICAL HISTORY: Dysphagia. Rule out silent aspiration. Acute CVA on this hospital admission. TECHNIQUE: Deglutition study is performed utilizing thin liquid barium, honey and nectar thick liqui d barium, barium thick applesauce, and barium coated cracker. 2 minute 30 seconds of fluoro time and 0 images obtained. COMPARISON: None. FINDINGS: The oral and pharyngeal phases show some mild delay in initiation. Satisfactory propagation noted. Satisfactory mastication is seen with solid modalities tested. There is some transient penet ration with thin liquid barium. No aspiration. Mild pharyngeal residue was appreciated. IMPRESSION: No aspiration visualized. Please refer to speech therapist notes for further details if necessary.
[2021-04-16] MEDS ORDERED: LORazepam 2 MG/ML INJ IV STA (13:31)
--- NOTE | 2021-04-16 16:03 | MR ---
EXAMINATION TYPE: MR cspine/lspine wo/w con DATE OF EXAM: 04/16/2021 COMPARISON: Lumbar spine x-ray from yesterday HISTORY: Slurred speech, arm and leg weakness. TECHNIQUE: Multiplanar, multisequence images of the cervical and lumbar spine are performed without and with IV contrast, utilizing 3.5 mL intravenous Gadavist FINDINGS: C-SPINE: Exam is suboptimal as there is motion artifact degradation. FINDINGS: Sagittal images of the cervical spine show the craniocervical junction to appear within nor mal limits. The cervical and upper thoracic spinal cord is normal in caliber and signal. Alignment i s straightened. Slight grade 1 retrolisthesis C4 on C5. The vertebral body heights are normal. Mild to moderate disc space narrowing and moderate anterior spurring C4-C5 through C6-C7 levels. Heteroge neous Modic type II endplate changes at these levels. Postcontrast images shows enhancement of single sacral nerve which is nonspecific finding. Axial images at C2-C3 level shows uncovertebral facet degenerative changes bilaterally causing mild b ilateral neural foraminal narrowing. Axial images at C3-C4 level show uncovertebral facet degenerative changes bilaterally. There is broad -based left paracentral/foraminal disc protrusion effacing ventral lateral thecal sac, there is mild right and moderate left-sided neural foraminal narrowing. Axial images at C4-C5 level shows spondylolisthesis and uncovertebral facet degenerative changes bila terally with lobulated right based right paracentral disc protrusion. There is effacement of the ante rior thecal sac and moderate bilateral neural foraminal narrowing. Axial images at C5-C6 level showed prominent broad-based posterior disc protrusion effacing anterior thecal sac nearly up to ventral surface of spinal cord, there is advanced right and moderate to advan onelia left-sided neural foraminal narrowing. Axial images at C6-C7 level showed broad based posterior disc protrusion effacing anterior thecal sac and causing advanced bilateral neural foraminal narrowing. Axial images at C7-T1 level appear within normal limits. IMPRESSION: Straightening of cervical spine with multilevel degenerative changes greatest at C5-C6 an d C6-C7 level as detailed above. L-SPINE: Slight underlying scoliotic curvature. Alignment straightened on sagittal images. Multilevel disc thomas iccation. Moderate to advanced disc space narrowing with heterogeneous echotexture endplate changes L 3-L4 through L5-S1 levels along with moderate to advanced spurring. Moderate disc space narrowing L1- L2 level. [id number]-po-[id number] disc space narrowing L2-L3 level. No suspicious postcontrast enhancement. Axial images at T12-L1 level shows lobulated paracentral disc protrusion effaces left anterolateral t hecal sac and mild facet arthropathy bilaterally. Axial images at L1-L2 level shows [id number] broad disc bulge effacing the anterior thecal sac and mild facet degenerative changes bilaterally. Axial images at L2-L3 level show [id number] broad disc bulge effacing anterior thecal sac and c ausing mild bilateral neural foraminal narrowing. Axial images at L3-L4 level show posterior spur disc complex effacing the anterior thecal sac along w ith moderate uncovertebral facet degenerative changes bilaterally. There is effacement of the anterio r and right lateral thecal sac. There is moderate bilateral neural foraminal narrowing right greater than left. Axial images at L4-L5 level show moderate facet arthropathy and ligamentum flavum hypertrophy. Mild t o moderate broad disc bulge mildly effaces the anterior thecal sac. Mild left and moderate to severe right-sided neural foraminal narrowing noted. Axial images at L5-S1 level shows spondylosis with moderate facet arthropathy. Broad-based posterior disc protrusion is seen. There is severe left and moderate right-sided neural foraminal narrowing. IMPRESSION: Straightening of the lumbar spine with multilevel degenerative changes greatest in the mi d to lower lumbar spine as detailed above.
--- NOTE | 2021-04-16 16:15 | MR ---
EXAMINATION TYPE: MR brain wo/w con DATE OF EXAM: 04/16/2021 COMPARISON: CT brain 04/15/2021 HISTORY: Slurred speech, arm and leg weakness. TECHNIQUE: Multiplanar, multisequence images of the brain and brainstem is performed without and with IV contras t, utilizing 3.5 mL intravenous Gadavist . FINDINGS: Diffusion weighted images demonstrate no evidence of a recent infarct or other diffusion ab normality. There is no extra-axial fluid collection. Confluent and scattered hyperintensities prese nt within the periventricular, pericallosal, subcortical white matter on inversion recovery T2-weight ed sequences. The ventricular system and cisternal spaces are normal in size and appearance. The bra in volume is age appropriate, there is cortical atrophy. Midline structures demonstrate normal morphology. The craniocervical junction appears within normal limits. Post contrast images demonstrate no abnormal enhancement. The dural venous sinuses appear pa tent. The visualized sinuses are remarkable for opacification of the left maxillary sinus, there is i nflammatory change in ethmoid air cells similar to prior CT, and the globes are intact. Basilar tip a ppears prominently possibly due to plane of section rather than true aneurysm. IMPRESSION: Age-related atrophy and chronic small vessel ischemic changes are favored. Sinusitis. Fin dings of the basilar tip is described.
[2021-04-16] MEDS: THIAMINE 100 MG TAB PO SCH (16:48)
--- NOTE | 2021-04-16 16:57 | CDI ---
Documentation Clarification Form Date: 04/16/2021 04:22:59 PM From: Neeta Razo RN, CCDS Admit Date: 04/15/2021 03:47:00 PM Patient Name: Juan Carlos Mills Visit Number: [id number] Discharge Date: ATTENTION: The Clinical Documentation Specialists (CDI) and [facility] Coding Staff appreciate your assistance in clarifying documentation. Please respond to the clarification below the line at the bottom and electronically sign. The CDI & [facility] Coding staff will review the response and follow-up if needed. Please note: Queries are made part of the Legal Health Record. If you have any questions, please contact the author of this message via ITS. Dr. Darryn Hickman Chronic protein calorie malnutrition is documented in the progress note on 04/16/21. Additional clarification regarding the severity of malnutrition is requested. History/Risk Factors: CVA, TIA, Hypertension, Current every day smoker, Alcohol abuse Clinical Indicators: 65-year-old male present to ED on 04/15 with left leg weakness and slurred speech ongoing for the last month. He has lost 30 lbs. over the last 6 months. He look very cachectic per ED assessment. Current BMI: 12.0 Insufficient energy intake: Yes Weight Loss: Yes Loss of subcutaneous fat: Yes Atrophy to most of muscles but mostly right first dorsal interosseous. Decrease tone. Per Neurology assessment on 04/15/21. Treatment: Dietary Consult: Inadequate energy intake. Poor appetite and etoh abuse, likely weight loss Supplements: Commercial beverage, Enlive TID Monitor Po intake Please clarify the severity of protein-calorie malnutrition, if known: [ ] Mild Protein-Calorie Malnutrition [ X ] Moderate Protein-Calorie Malnutrition [ ] Severe Protein-Calorie Malnutrition [ ] Other condition, please specify [ ] Unable to Determine (Template Last Revised: December 2020) MTDD
[2021-04-16 19:58] LABS: Folate, Serum 14.2 ng/mL
[2021-04-17] MEDS: THIAMINE 100 MG TAB PO SCH ×2 (06:42→16:59)
--- NOTE | 2021-04-17 08:20 | P.PN ---
Progress Note - Text Progress Note Date: 04/17/21 MRI of the C and L spine reviewed. Severe degenerative changes of the cervical and lumbar spine noted. C4-7 spondylosis, severe with flattening of the normal cervical lordosis. There is moderate to severe stenosis C4-7 as well noted with modic endplate changes at these levels. No myelomalacia noted. Lumbar spine shows severe degenerative changes as well from L2-S1 with moderate to severe central stenosis L3-S1 and foraminal stenosis on the R at these same levels. There is flattening of the normal lumbar lordosis as well with almost complete disc dessication at these levels. There are no fractures or dislocations noted in either of these exams. There are no lesions noted and no evidence of primary or metestatic disease. Would recommend TORO at L3-4 to start Full consult pending
[2021-04-17] MEDS: amLODIPine 10 MG TAB PO SCH (08:38)
[2021-04-17] MEDS: ATORVASTATIN 20 MG TAB PO SCH (08:38)
[2021-04-17] MEDS: MULTIVITAMINS, THERA 1 EACH TAB PO SCH (08:38)
[2021-04-17] MEDS: ASPIRIN 81 MG PO SCH (08:38)
[2021-04-17] MEDS: lisinopriL 20 MG TAB PO SCH (08:38)
[2021-04-17] MEDS: NICOTINE 21MG/24HR PATCH TRANSDERM SCH (08:38)
[2021-04-17] MEDS: HEPARIN SODIUM,PORCINE/PF 5,000 UNIT/0.5 ML SYRINGE SQ SCH ×2 (08:38→16:59)
--- NOTE | 2021-04-17 11:38 | P.CNOR ---
History of Present Illness - [facility] Consult date: 04/17/21 Consult reason: other (Abnormal cervical and lumbar MRI) History of present illness: Patient is a 65-year-old male who was admitted to [facility] on 04/15/2021 with regards to severe right-sided weakness, difficulty with ambulation and slurred speech. Patient was initially admitted under internal medicine, neurology is also been evaluating the patient. On initial presentation, it was determined the patient had been dealing with these symptoms over the last 2-2-1/2 months. Patient is a chronic smoker and chronic alcohol user. Patient lives with his son. Patient normally utilizes no aids with ambulation, he has been utilizing a walker due to the weakness in the right lower extremity. 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 Patient denies any loss of bowel or bladder function. Patient denies any perianal genital numbness. Patient denies any numbness or tingling of the bilateral upper or lower extremities. Patient denies any pain involving the cervical, thoracic or lumbar spine. Patient admits to bilateral shoulder pain that has been there for years. He denies any pain of the hips or knees at this time. He denies any pain of the foot and ankles. He admits to a large weight loss in the last few months. He has noticed in the last month or so the foot drop on the right foot has gotten worse and not improved. Patient denies any previous surgery on the cervical, thoracic and l umbar spine. Review of Systems Constitutional: Reports as per [facility] Past Medical History Past Medical History: CVA/TIA, Hypertension History of Any Multi-Drug Resistant Organisms: None Reported Past Surgical History: No Surgical Hx Reported Past Psychological History: No Psychological Hx Reported Smoking Status: Current every day smoker Past Alcohol Use History: Daily Past Drug Use History: None Reported Medications and Allergies Home Medications Medication Instructions Recorded Confirmed Type amLODIPine BESYLATE/BENAZEPRIL 1 cap PO DAILY 04/15/21 04/15/21 History [Lotrel 10-20 MG] Allergies Allergy/AdvReac Type Severity Reaction Status Date / Time No Known Allergies Allergy Verified 04/15/21 14:08 Physical Examination Gen: AOx3, NAD VSS stable at this time Patient is very frail with loss of muscular tone in the bilateral upper and lowe r extremities and torso. Integument: There are no open lesions or sores present throughout the cervical, thoracic or lumbar spine. There is no significant areas of erythema or soft tissue swelling Palpation: Patient is nontender with palpation in the cervical, thoracic or lumbar area including the midline and paraspinal region ROM: Left lower extremity demonstrates adequate range of motion with regards to hip flexion, knee flexion, knee extension, plantar flexion, dorsiflexion, EHL, FHL. The right lower extremity demonstrates loss of active motion with dorsiflexion, plantarflexion, hip flexion. Knee flexion and extension are intact but limited. Right upper extremity range of motion is severely limited with 40 elevation, abduction. Elbow extension, elbow flexion, wrist extension and wrist flexion are slightly better Range of motion in the left upper extremity is intact with all major muscle groups Sensory Exam: Senory exam to light touch is intact C5-T1 Senosry exam to light touch is intact L2-S1 Motor: Left upper extremity demonstrates 4 out of 5 strength with shoulder abduction, forward elevation, elbow extension, elbow flexion, wrist extension, wrist flexion Right upper extremity demonstrates 23 out of 5 strength with regards to shoulder abduction, forward elevation, elbow extension, elbow flexion, wrist extension, wrist flexion Left lower extremity demonstrates 4-5 strength with hip flexion, knee extension, knee flexion, plantar flexion, dorsiflexion, EHL, FHL Right lower extremity demonstrates 25 strength with hip flexion, 35 strength with knee extension and knee flexion, 0 out of 5 strength with dorsiflexion, 2 out of 5 strength with plantarflexion, 0 out of 5 strength with EHL, 2 out of 5 strength with FHL Special Test: Negative Jeremiah's, Babinski and clonus bilaterally Results - Labs Labs: Abnormal Lab Results - Last 24 Hours (Table) 04/16/21 Range/Units 07:26 Cholesterol 236 H (0-200) mg/dL HDL Cholesterol 96.0 H (40.0-60.0) mg/dL H & H 04/15/21 Range/Units 13:15 Hgb 16.1 (13.0-17.5) gm/dL Hct 46.4 (39.0-53.0) % Coagulation 04/15/21 Range/Units 13:15 INR 0.9 (<1.2) Result Diagrams: 04/15/21 13:15 04/16/21 07:26 Assessment and Plan Assessment: C4-7 spondylosis with severe stenosis noted at C4-7 L2-S1 spondylosis with severe central stenosis at L3-S1 foraminal stenosis noted on the right L3-S1 Plan: Imaging: MRI of the C and L spine reviewed. Severe degenerative changes of the cervical and lumbar spine noted. C4-7 spondylosis, severe with flattening of the normal cervical lordosis. There is moderate to severe stenosis C4-7 as well noted with modic endplate changes at these levels. No myelomalacia noted. Lumbar spine shows severe degenerative changes as well from L2-S1 with moderate to severe central stenosis L3-S1 and foraminal stenosis on the R at these same levels. There is flattening of the normal lumbar lordosis as well with almost complete disc dessication at these levels. There are no fractures or dislocations noted in either of these exams. There are no lesions noted and no evidence of primary or metestatic disease. Plan: I was able to discuss the case, including both physical exam findings and imaging studies my attending Dr. Trevino. He will be available to further examine the patient and discussed treatment options with him later this morning. We are considering a possible epidural steroid injection at L3-L4 to aid with his symptomatic relief, we will consult pain management for this Recommend weightbearing as tolerated with walker Patient will need a ankle orthotic to aid in his foot drop on the right side GI and DVT prophylaxis per primary medical service Continue further medical workup, especially taking into consideration his severe weight loss and smoking history Other medical safety director recommendations Further recommendations to follow
[2021-04-17] MEDS: IPRATROPIUM-ALBUTEROL 3 ML NEB INHALATION PRN (12:06)
--- NOTE | 2021-04-17 14:09 | P.PN ---
Subjective Progress Note Date: 04/17/21 Patient is awake and alert today. His speech is very difficult to understand. Patient himself does not have any complaints. He is asking when he can go home. Objective - Vital Signs Vital signs: Vital Signs Temp 98.8 F 04/17/21 12:00 Pulse 94 04/17/21 12:15 Resp 16 04/17/21 13:44 BP 115/77 04/17/21 12:00 Pulse Ox 91 L 04/17/21 12:00 Intake & Output 04/16/21 04/17/21 04/17/21 18:59 06:59 18:59 Intake Total 600 240 Output Total 450 500 950 Balance 150 -500 -710 Weight 37 kg 39 kg Intake: Oral 600 240 Output: Urine 450 500 950 Other: Voiding Method Urinal Urinal Urinal # Voids 1 - Exam General: The patient is cachectic. He is awake and alert, in no distress Eye: there is normal conjunctiva bilaterally. Neck: The neck is supple, there is no JVD. Cardiovascular: Normal S1-S2, no S3-S4, no murmurs. Respiratory: Lungs clear to auscultation bilaterally Gastrointestinal: Abdomen is soft, nontender Musculoskeletal: There is no pedal edema. Neurological:. Speech is normal. Skin: Skin is warm and dry - Labs CBC & Chem 7: 04/15/21 13:15 04/16/21 07:26 Assessment and Plan Assessment: This is a 65 -year-old male with past medical history noted below significant for heavy alcohol abuse who presented to the hospital with acute on chronic slurred speech and weakness progressing over several weeks to several months. Patient was evaluated in the ER and admitted to the hospital for further man agement of his medical problems noted below. 1. Slurred speech, computed tomography scan and MRI of the brain showed no acute findings. Speech pathology consulted. Swallow study showed no evidence of aspiration. 2. Generalized weakness worse on the right side of the body. CVA ruled out. Patient was seen and evaluated by neurology. There is concern about underlying motoneuron disease. Plan to follow-up with specialized ALS clinic as an outpatient. Carotid Doppler with no hemodynamically significant stenosis. Echocardiogram with preserved ejection fraction and no significant valvular abnormality 3. Heavy alcohol abuse, patient reported drinking 10 beers daily for 20 years. He was counseled extensively to quit. CIWA protocol as needed. Started on thiamine and multivitamins. 4. Chronic severe protein/calorie malnutrition, secondary to heavy alcohol use. Started ensure 3 times a day. Consult dietitian for further evaluation. 5. Essential hypertension, blood pressure well-controlled. Continue current regimen. 6. Hyperlipidemia, started on Lipitor 20 mg daily Today, I reviewed his medication list and lab work results. Patient was started on aspirin and Lipitor. thyroid function tests, vitamin B12, and folate level within normal range. Appreciate neurology recommendations. PT/OT evaluation. I had a prolonged discussion with the watch case polisher regarding discharge planning today. Patient does not have insurance and the emergent application for Medicaid was submitted. His son is unable to take care of him and patient at the is definitely unable to live alone secondary to severe weakness
--- NOTE | 2021-04-17 17:00 | P.PN ---
Subjective Progress Note Date: 04/17/21 Patient was seen at bedside and feels about the same today compared to yesterday. He denies of any worsening of his neurological condition. Objective - Vital Signs Vital signs: Vital Signs Temp 98.8 F 04/17/21 12:00 Pulse 94 04/17/21 12:15 Resp 16 04/17/21 13:44 BP 115/77 04/17/21 12:00 Pulse Ox 91 L 04/17/21 12:00 Intake & Output 04/16/21 04/17/21 04/17/21 18:59 06:59 18:59 Intake Total 600 240 Output Total 450 500 950 Balance 150 -500 -710 Weight 37 kg 39 kg Intake: Oral 600 240 Output: Urine 450 500 950 Other: Voiding Method Urinal Urinal Urinal # Voids 1 - Exam GENERAL: The patient is lying in bed and is not in acute distress and is cachectic. NEUROLOGICAL: Higher mental function: The patient is awake, alert, oriented to self, place and time. Patient is following commands. No aphasia and no neglect. Cranial nerves: The pupils are round, equal and reactive to light and accommodation. Visual douglas are full to confrontation throughout. There is no ptosis of either eye. Extraocular movement is intact no nystagmus is noted. Facial sensation is normal to touch throughout. The facial strength is normal throughout. Hearing is normal bilaterally to hand rub. Tongue is atrophy with fasciulation. Has moderate severe dysarthria is noted. Motor: Gait was attempted but could not keep himself up and was hunched over. The strength (right/left) is shoulder is 3/5 bilaterally; left arm flexion and extension is 4-4+ while right is 4+-5-; bilateral hand human resource statistician is 5- b/l; hip flexors 3/4; hip flexor 4+/4+; knee extensor 4-+/5-; knee flexor 3-4/4+; ankle dorsiflexion 0/3; ankles plantar flexion 0/4. Atrophy to most of muscles but mostly right first dorsal interosseous (stated he had old injury in past). Decrease tone. There is fasciulation of bilateral deltoids, biceps muscles, th ighs regions. Cerebellum: Normal finger to nose bilaterally. Sensation: Sensation is normal to touch throughout. Reflexes (right/left): triceps 1-2+/0-1; biceps 1/1; brachioradialis 0-1 b/l; patellar 1+/2-3+; ankles 1+/2+ Plantars are mute bilaterally. LABS/IMAGING: Carotid duplex is reported as no hemodynamically significant internal carotid artery stenosis on either side. 2-D echo was reported as left ventricular wall thickness is normal. Ejection fraction of 55-60%. Lipid panel: Triglyceride 122, cholesterol 236, LDLs 1:15, HDL of 96 at. Vitamin B12 is 604 which is considered within normal limits. Folate is 14.2 and that's also considered within normal limits. TSH is 1.02 which is within normal limits. MR the brain is reported as age-related atrophy and chronic small vessel ischemic changes are favored. Sinusitis. Finding of the basilar tip is described above. In the body it is mentioned as the basilar tip appears predominantly possibly due to the plane of section read then to aneurysm. MRI of the cervical spine is reported as straightening of the cervical spine with multilevel degenerative changes greatest at C5 and C6 and C6 and the C7 level as detailed above. MRI of the lumbar is reported as straightening of the lumbar spine with multilevel degenerative changes greatest in the mid to lower lumbar spine as detailed above. - Labs CBC & Chem 7: 04/15/21 13:15 04/16/21 07:26 Assessment and Plan Assessment: * Significant progressive dysarthria and weakness at different muscle distribution for the past 3 months (that seem throughout but most significant is right foot drop. On examination has atrophy, fasciculation of tongue and different muscles of upper and lower extremiteis): Seems more motor neuron disease (He does have cervical and lumbar moderate to severe spondylosis which can contribute to some of his weakness but does not explain his dysarthria and I think he has underlying motor neuron disease). * Moderate to severe stenosis over C4 to C7 with no myelomalacia noted in the cervical spine (He denies of any neck pain). * Severe degenerative changes in the L2-S1. * Mild hyponatremia (130 on presentation) likely due to the chronic alcohol use * Mild to moderate degenerative changes of the lumbar spine (per X-ray) * History of hypertension * Chronic Alcohol use (drinks 10 cans of beer daily) * Chronic nicotine use (smokes 1 1/2 PPD for >40 years) Plan: I also had discussion with his Dr. Trevino and he agrees that his dysarthria are not due to cervical spondylosis and his muscles atrophy atrophy is not soley due to his cervical an lumbar spondylosis. Orthopedic team is on board and they're considering epidural injection. PT, OT and WATERMELON INSPECTOR are consulted. On Q4 hours neuro-checks. Continue on cardiac monitoring On thiamine 100 mg 1 tablet twice a day. Recommended the patient to follow-up in the motor neuron clinic/ALS clinic as an outpatient in an academic center within 1-2 weeks as an outpatient. On CIWA protocol and will defer management to the primary team. Patient was counseled on tobacco cessation and alcohol cessation. The plan is discussed in details with the patient, primary attending and his nurse. Harish Esposito MD Neuro-Hospitalist Time with Patient: Less than 30
--- NOTE | 2021-04-17 19:22 | CT ---
EXAMINATION TYPE: CT angio head neck DATE OF EXAM: 04/17/2021 COMPARISON: HISTORY: Assess basilar tip. Rule out aneurysm. CT DLP: 1452.5 mGycm Automated exposure control for dose reduction was used. CONTRAST: Performed without and with IV Contrast, patient injected with 65 mL of Isovue 370. There are 3-D post processed images. There is normal branching pattern of the great vessels on the aortic arch. There is arterial flow in both subclavian arteries. There is arterial flow in both vertebral arteries. There is arterial flow i n the common internal and external carotid arteries bilaterally. There is minimal plaque formation at the carotid artery bifurcations and luminal narrowing less than 10%. There is no evidence of carotid or vertebral artery aneurysm or dissection. There is tortuosity of the internal carotid arteries oliva aterally. There is arterial flow in the vertebrobasilar artery system. There is arterial flow in the anterior m iddle and posterior cerebral arteries. There is no evidence of intracranial aneurysm or neovascularit y. There is no mass effect. There is normal enhancement of the venous sinuses. I see no evidence of i ntracranial arterial stenosis. There is opacification of the left maxillary sinus. There is some expa nsion into the left side nasopharynx. There is some mild wall thickening. This is consistent with a m ucocele. IMPRESSION: Negative CT angiogram of the neck. Negative CT angiogram of the brain. No evidence of aneurysm. No ev idence of hemodynamic stenosis. There is evidence for a mucocele left maxillary sinus.
[2021-04-18] MEDS: HEPARIN SODIUM,PORCINE/PF 5,000 UNIT/0.5 ML SYRINGE SQ SCH ×3 (03:09→17:53)
[2021-04-18] MEDS: THIAMINE 100 MG TAB PO SCH ×2 (06:33→17:53)
[2021-04-18] MEDS: IPRATROPIUM-ALBUTEROL 3 ML NEB INHALATION PRN ×2 (08:26→19:27)
[2021-04-18] MEDS: amLODIPine 10 MG TAB PO SCH (08:57)
[2021-04-18] MEDS: lisinopriL 20 MG TAB PO SCH (08:57)
[2021-04-18] MEDS: ATORVASTATIN 20 MG TAB PO SCH (08:57)
[2021-04-18] MEDS: MULTIVITAMINS, THERA 1 EACH TAB PO SCH (08:57)
[2021-04-18] MEDS: ASPIRIN 81 MG PO SCH (08:57)
[2021-04-18] MEDS: NICOTINE 21MG/24HR PATCH TRANSDERM SCH ×2 (08:57→20:27)
[2021-04-18 13:57] VITALS: BMI 14.4
--- NOTE | 2021-04-18 14:47 | P.PN ---
Subjective Progress Note Date: 04/18/21 Patient is doing well today. His speech is unchanged. No acute events overnight reported by nursing staff. Objective - Vital Signs Vital signs: Vital Signs Temp 98.4 F 04/17/21 20:00 Pulse 94 04/18/21 12:00 Resp 16 04/18/21 08:41 BP 109/58 04/18/21 12:00 Pulse Ox 91 L 04/18/21 12:00 Intake & Output 04/17/21 04/18/21 04/18/21 18:59 06:59 18:59 Intake Total 720 480 Output Total 1450 280 325 Balance -730 -280 155 Weight 44.361 kg Intake: Oral 720 480 Output: Urine 1450 280 325 Other: Voiding Method Urinal Urinal - Exam General: The patient is cachectic. He is awake and alert, in no distress Eye: there is normal conjunctiva bilaterally. Neck: The neck is supple, there is no JVD. Cardiovascular: Normal S1-S2, no S3-S4, no murmurs. Respiratory: Lungs clear to auscultation bilaterally Gastrointestinal: Abdomen is soft, nontender Musculoskeletal: There is no pedal edema. Neurological:. Speech is normal. Skin: Skin is warm and dry - Labs CBC & Chem 7: 04/15/21 13:15 04/16/21 07:26 Assessment and Plan Assessment: This is a 65 -year-old male with past medical history noted below significant for heavy alcohol abuse who presented to the hospital with acute on chronic slurred speech and weakness progressing over several weeks to several months. Patient was evaluated in the ER and admitted to the hospital for further management of his medical problems noted below. 1. Slurred speech, computed tomography scan and MRI of the brain showed no acute findings. Speech pathology consulted. Swallow study showed no evidence of aspiration. CT angiogram of the head and neck unremarkable 2. Generalized weakness worse on the right side of the body. CVA ruled out. Patient was seen and evaluated by neurology. There is concern about underlying motoneuron disease. Plan to follow-up with specialized ALS clinic as an outpatient. Carotid Doppler with no hemodynamically significant stenosis. Echocardiogram with preserved ejection fraction and no significant valvular abnormality 3. Heavy alcohol abuse, patient reported drinking 10 beers daily for 20 years. He was counseled extensively to quit. No evidence of withdrawal. CIWA protocol as needed. Started on thiamine and multivitamins. 4. Chronic severe protein/calorie malnutrition, secondary to heavy alcohol use. Started ensure 3 times a day. Consult dietitian for further evaluation. 5. Essential hypertension, blood pressure well-controlled. Continue current regimen. 6. Hyperlipidemia, started on Lipitor 20 mg daily Today, I reviewed his medication list and lab work results. Patient was started on aspirin and Lipitor. thyroid function tests, vitamin B12, and folate level within normal range. Appreciate neurology recommendations. PT/OT evaluation. I had a prolonged discussion with the casework manager regarding discharge planning today. Patient does not have insurance and the emergent application for Medicaid was submitted. His son is unable to take care of him and patient at the is definitely unable to live alone secondary to severe weakness. I attempted to call the son multiple times with no response. household worker spoke to the son this morning. Anticipate discharge tomorrow if possible.
[2021-04-19] MEDS: HEPARIN SODIUM,PORCINE/PF 5,000 UNIT/0.5 ML SYRINGE SQ SCH ×3 (00:36→17:42)
[2021-04-19] MEDS: THIAMINE 100 MG TAB PO SCH ×2 (06:34→17:42)
[2021-04-19 09:04] LABS: Basophils % (A) 1 %; Eosinophils # (A) 0.1 k/uL (0-0.7); Eosinophils % (A) 2 %; HCT 38.9 % (39.0-53.0); HGB 13.9 gm/dL (13.0-17.5); Lymphocytes # (A) 1.4 k/uL (1.0-4.8); Lymphocytes % (A) 21 %; MCH 33.7 pg (25.0-35.0); MCHC 35.6 g/dL (31.0-37.0); MCV 94.7 fL (80.0-100.0); Mean Platelet Volume 6.9; Monocytes # (A) 0.6 k/uL (0-1.0); Monocytes % (A) 9 %; Neutrophils # (A) 4.5 k/uL (1.3-7.7); Neutrophils % (A) 65 %; Platelet Count 231 k/uL (150-450); RBC 4.11 m/uL (4.30-5.90); RDW 13.1 % (11.5-15.5); WBC 6.9 k/uL (3.8-10.6)
[2021-04-19] MEDS: amLODIPine 10 MG TAB PO SCH (09:11)
[2021-04-19] MEDS: ASPIRIN 81 MG PO SCH (09:11)
[2021-04-19] MEDS: lisinopriL 20 MG TAB PO SCH (09:11)
[2021-04-19] MEDS: ATORVASTATIN 20 MG TAB PO SCH (09:11)
[2021-04-19] MEDS: MULTIVITAMINS, THERA 1 EACH TAB PO SCH (09:11)
[2021-04-19 09:18] LABS: African American GFR (CKD) >90 (>60 ml/min/1.73 sqM); Anion Gap 4 mmol/L; Blood Urea Nitrogen 8 mg/dL (9-20); Calcium 9.5 mg/dL (8.4-10.2); Carbon Dioxide 33 mmol/L (22-30); Chloride 92 mmol/L (98-107); Glucose 100 mg/dL (74-99); Magnesium 1.8 mg/dL (1.6-2.3); Non-African American GFR(CKD) >90 (>60 ml/min/1.73 sqM); Potassium 4.9 mmol/L (3.5-5.1); Sodium 129 mmol/L (137-145)
--- NOTE | 2021-04-19 11:25 | P.DS ---
Providers Date of admission: 04/15/21 15:47 Expected date of discharge: 04/19/21 Attending physician: Teri Donaldson MD Consults: 04/15/21 15:47 Consult Physician Routine Consulting Provider: Harish Esposito Consult Reason/Comments: CVA Do you want consulting provider notified?: Yes 04/16/21 17:02 Consult Physician Routine Consulting Provider: Arya Trevino Consult Reason/Comments: cervical and lumbar spondylosis. Do you want consulting provider notified?: Yes Primary care physician: Torito Vanegas MD Hospital Course: This is a 65 -year-old male with past medical history noted below significant for heavy alcohol abuse who presented to the hospital with acute on chronic slurred speech and weakness progressing over several weeks to several months. Patient was evaluated in the ER and admitted to the hospital for further management of his medical problems noted below. 1. Slurred speech, computed tomography scan and MRI of the brain showed no acute findings. Speech pathology consulted. Swallow study showed no evidence of aspiration. CT angiogram of the head and neck unremarkable 2. Generalized weakness worse on the right side of the body. CVA ruled out. Patient was seen and evaluated by neurology. There is concern about underlying motoneuron disease. Plan to follow-up with specialized ALS clinic as an outpatient. Carotid Doppler with no hemodynamically significant stenosis. Echocardiogram with preserved ejection fraction and no significant valvular abnormality 3. Heavy alcohol abuse, patient reported drinking 10 beers daily for 20 years. He was counseled extensively to quit. No evidence of withdrawal. Started on thiamine and multivitamins. 4. Chronic severe protein/calorie malnutrition, secondary to heavy alcohol use. Started ensure 3 times a day. Consulted dietitian for further evaluation. 5. Essential hypertension, blood pressure well-controlled. Continue current regimen. 6. Hyperlipidemia, started on Lipitor 20 mg daily Patient was started on aspirin and Lipitor. thyroid function tests, vitamin B12, and folate level within normal range. Appreciate neurology recommendations. I had a prolonged discussion with the case assembler regarding discharge planning today. Patient does not have insurance and an emergent application for Medicaid was submitted. His son i would be taking care of him at home. Patient was seen and evaluated by me on the day of discharge. His overall condition is stable. Physical exam is benign. His speech remained slurred and hard to understand. He was counseled extensively about the importance to follow up with the ALS neurology clinic as directed Patient Condition at Discharge: Poor Plan - Discharge Summary Discharge Rx Participant: Yes New Discharge Prescriptions: New Aspirin 81 mg PO DAILY@1200 #30 chew Multivitamins, Thera [Multivitamin (formulary)] 1 each PO DAILY@1200 #30 tab amLODIPine [Norvasc] 10 mg PO DAILY@1200 #30 tab Thiamine [Vitamin B-1] 100 mg PO BID-W/MEALS #60 tab Nicotine 21Mg/24Hr Patch [Habitrol] 1 patch TRANSDERM DAILY #30 patch Atorvastatin [Lipitor] 20 mg PO DAILY@1200 #30 tab Discontinued amLODIPine BESYLATE/BENAZEPRIL [Lotrel 10-20 MG] 1 cap PO DAILY Discharge Medication List Aspirin 81 mg PO DAILY@1200 #30 chew 04/19/21 [Rx] Atorvastatin [Lipitor] 20 mg PO DAILY@1200 #30 tab 04/19/21 [Rx] Multivitamins, Thera [Multivitamin (formulary)] 1 each PO DAILY@1200 #30 tab 04/19/21 [Rx] Nicotine 21Mg/24Hr Patch [Habitrol] 1 patch TRANSDERM DAILY #30 patch 04/19/21 [Rx] Thiamine [Vitamin B-1] 100 mg PO BID-W/MEALS #60 tab 04/19/21 [Rx] amLODIPine [Norvasc] 10 mg PO DAILY@1200 #30 tab 04/19/21 [Rx] Follow up Appointment(s)/Referral(s): [facility] [facility] [NON-STAFF] - [facility], [NON-STAFF] - (Will give one free visit to help set up life alert.) Torito Vanegas MD [Primary Care Provider] - [address],[place] [NON-STAFF] - Discharge/Stand Alone Forms: Who Do I Call?, Help In The Home Discharge Disposition: HOME WITH HOME HEALTH SERVICES
[2021-04-19] MEDS ORDERED: ASPIRIN 81 MG PO SCH (12:00)
[2021-04-19] MEDS ORDERED: MULTIVITAMINS, THERA 1 EACH TAB PO SCH (12:00)
[2021-04-19] MEDS ORDERED: ATORVASTATIN 20 MG TAB PO SCH (12:00)
[2021-04-19] MEDS ORDERED: amLODIPine 10 MG TAB PO SCH (12:00)
[2021-04-19] MEDS ORDERED: lisinopriL 20 MG TAB PO SCH ×2 (12:00)
--- NOTE | 2021-04-19 12:15 | P.PN ---
Subjective Progress Note Date: 04/19/21 Patient seen at bedside and he feels about the same today compared to his initial presentation. Objective - Vital Signs Vital signs: Vital Signs Temp 97.7 F 04/19/21 08:34 Pulse 78 04/19/21 11:15 Resp 18 04/19/21 11:15 BP 110/74 04/19/21 11:15 Pulse Ox 94 L 04/19/21 11:15 Intake & Output 04/18/21 04/19/21 04/19/21 18:59 06:59 18:59 Intake Total 960 480 118 Output Total 325 800 Balance 635 -320 118 Weight 44.361 kg 39.5 kg 44.361 kg Intake: Oral 960 480 118 Output: Urine 325 800 Other: Voiding Method Urinal Urinal # Voids 3 - Exam GENERAL: The patient is lying in bed and is not in acute distress and is cac hectic. NEUROLOGICAL: Higher mental function: The patient is awake, alert, oriented to self, place and time. Patient is following commands. No aphasia and no neglect. Cranial nerves: The pupils are round, equal and reactive to light and accommodation. Visual douglas are full to confrontation throughout. There is no ptosis of either eye. Extraocular movement is intact no nystagmus is noted. Facial sensation is normal to touch throughout. The facial strength is normal throughout. Hearing is normal bilaterally to hand rub. Tongue is atrophy with fasciulation. Has moderate severe dysarthria is noted. Motor: Gait was attempted but could not keep himself up and was hunched over. The strength (right/left) is shoulder is 3/5 bilaterally; left arm flexion and extension is 4-4+ while right is 4+-5-; bilateral hand fish roe processor is 5- b/l; hip flexors 3/4; hip flexor 4+/4+; knee extensor 4-+/5-; knee flexor 3-4/4+; ankle dorsiflexion 0/3; ankles plantar flexion 0/4. Atrophy to most of muscles but mostly right first dorsal interosseous (stated he had old injury in past). Decrease tone. There is fasciulation of bilateral deltoids, biceps muscles, thighs regions. Cerebellum: Normal finger to nose bilaterally. Sensation: Sensation is normal to touch throughout. Reflexes (right/left): triceps 1-2+/0-1; biceps 1/1; brachioradialis 0-1 b/l; patellar 1+/2-3+; ankles 1+/2+ Plantars are mute bilaterally. LABS/IMAGING: Carotid duplex is reported as no hemodynamically significant internal carotid artery stenosis on either side. 2-D echo was reported as left ventricular wall thickness is normal. Ejection fraction of 55-60%. Lipid panel: Triglyceride 122, cholesterol 236, LDLs 1:15, HDL of 96 at. Vitamin B12 is 604 which is considered within normal limits. Folate is 14.2 and that's also considered within normal limits. TSH is 1.02 which is within normal limits. MR the brain is reported as age-related atrophy and chronic small vessel ischemic changes are favored. Sinusitis. Finding of the basilar tip is described above. In the body it is mentioned as the basilar tip appears predominantly possibly due to the plane of section read then to aneurysm. MRI of the cervical spine is reported as straightening of the cervical spine with multilevel degenerative changes greatest at C5 and C6 and C6 and the C7 level as detailed above. MRI of the lumbar is reported as straightening of the lumbar spine with multilevel degenerative changes greatest in the mid to lower lumbar spine. CT angiography of the head and neck was reported as negative CT angiogram of the neck. Negative CT angiogram of the brain. No evidence of aneurysm. No evidence of hemodynamic stenosis. There is evidence for a mucocele left maxillary sinus. - Labs CBC & Chem 7: 04/19/21 08:17 04/19/21 08:17 Labs: Abnormal Lab Results - Last 24 Hours (Table) 04/19/21 04/19/21 Range/Units 08:17 08:17 RBC 4.11 L (4.30-5.90) m/uL Hct 38.9 L (39.0-53.0) % Sodium 129 L (137-145) mmol/L Chloride 92 L (98-107) mmol/L Carbon Dioxide 33 H (22-30) mmol/L BUN 8 L (9-20) mg/dL Creatinine 0.37 L (0.66-1.25) mg/dL Glucose 100 H (74-99) mg/dL Assessment and Plan Assessment: * Significant progressive dysarthria and weakness at different muscle distribution for the past 3 months (that seem throughout but most significant is right foot drop. On examination has atrophy, fasciculation of tongue and different muscles of upper and lower extremiteis): Seems more motor neuron disease (He does have cervical and lumbar moderate to severe spondylosis which can contribute to some of his weakness but does not explain his dysarthria and I think he has underlying motor neuron disease). * Moderate to severe stenosis over C4 to C7 with no myelomalacia noted in the cervical spine (He denies of any neck pain). * Severe degenerative changes in the L2-S1. * Mild hyponatremia (130 on presentation) likely due to the chronic alcohol use * Mild to moderate degenerative changes of the lumbar spine (per X-ray) * History of hypertension * Chronic Alcohol use (drinks 10 cans of beer daily) * Chronic nicotine use (smokes 1 1/2 PPD for >40 years) Plan: I also had discussion with his Dr. Trevino and he agrees that his dysarthria are not due to cervical spondylosis and his muscles atrophy atrophy is not soley due to his cervical an lumbar spondylosis. Orthopedic team is on board and they're considering epidural injection. PT, OT and PIPE RACKER are consulted. On Q4 hours neuro-checks. Continue on cardiac monitoring On thiamine 100 mg 1 tablet twice a day. Recommended the patient to follow-up in the motor neuron clinic/ALS clinic as an outpatient in an academic center within 1-2 weeks as an outpatient. On CIWA protocol and will defer management to the primary team. Patient was counseled on tobacco cessation and alcohol cessation. The plan is discussed in details with the patient, primary attending and his nurse. There is no further work-up. Harish Esposito MD Neuro-Hospitalist Time with Patient: Less than 30
[2021-04-19 15:51] VITALS: BP 101/66; PULSE 80; RESP 16; TEMP 98.7
--- NOTE | 2021-04-23 08:32 | CDI ---
Documentation Clarification Form Date: 04/23/2021 08:24:46 AM From: Jacob Barakat Admit Date: 04/15/2021 03:47:00 PM Patient Name: Juan Carlos Mills Visit Number: [id number] Discharge Date: 04/19/2021 06:09:00 PM ATTENTION: The Clinical Documentation Specialists (CDI) and [facility] Coding Staff appreciate your assistance in clarifying documentation. Please respond to the clarification below the line at the bottom and electronically sign. The CDI & [facility] Coding staff will review the response and follow-up if needed. Please note: Queries are made part of the Legal Health Record. If you have any questions, please contact the author of this message via ITS. Dr. Darryn Hickman Conflicting documentation has been found in the medical record. As attending physician, please provide clarification Moderate malnutrition is documented in your query answer 04/16/21 Severe malnutrition is documented in your discharge summary 04/19/21 Please clarify which diagnosis is most appropriate: [ ] severe malnutrition [ ] moderate malnutrition [ ] Other (please specify) [ ] Unable to determine MTDD
--- NOTE | 2021-04-25 17:20 | CDI ---
Documentation Clarification Form Date: 04/25/2021 05:15:51 PM From: Jacob Barakat Admit Date: 04/17/2021 11:06:00 AM Patient Name: Jacob Durand Visit Number: [id number] Discharge Date: 04/19/2021 12:58:00 PM ATTENTION: The Clinical Documentation Specialists (CDI) and [facility] Coding Staff appreciate your assistance in clarifying documentation. Please respond to the clarification below the line at the bottom and electronically sign. The CDI & [facility] Coding staff will review the response and follow-up if needed. Please note: Queries are made part of the Legal Health Record. If you have any questions, please contact the author of this message via ITS. Dr. Trevon Flores The final diagnosis of the pathology report states [insert result/diagnosis]. Coding guidelines do not allow coding professionals to code based on pathology results; therefore, clarification is requested. Discharge summary states L renal mass. Pathology indicates renal cell carcinoma. History/risk factors: L renal mass Clinical Indicators: L renal mass Treatment: L radical nephrectomy Please clarify if you agree with the pathology report diagnosis of renal cell carcinoma [ X ] Yes [ ] No [ ] Other (please specify) [ ] Unable to determine Yes I agree wit the finding MTDD
== END 2021-04-19 18:09 | disposition home health service (06) | DRG 56 ==
LOC: EC 12:31 → 3SCARD 15:47 → UNDODISIN 04-18 21:30
PROVIDERS: ADMIT Internal Medicine; ATTEND Internal Medicine
DX: G12.20 Motor neuron disease, unspecified (principal); E43 Unspecified severe protein-calorie malnutrition; E87.1 Hypo-osmolality and hyponatremia; I67.89 Other cerebrovascular disease; Z68.1 Body mass index [BMI] 19.9 or less, adult; E44.0 Moderate protein-calorie malnutrition; G58.9 Mononeuropathy, unspecified; R47.1 Dysarthria and anarthria; Z86.73 Personal history of transient ischemic attack (TIA), and cerebral infarction without residual deficits; I10 Essential (primary) hypertension; F10.10 Alcohol abuse, uncomplicated; M21.371 Foot drop, right foot; J32.0 Chronic maxillary sinusitis; M47.816 Spondylosis without myelopathy or radiculopathy, lumbar region; R63.4 Abnormal weight loss; M48.061 Spinal stenosis, lumbar region without neurogenic claudication; M48.02 Spinal stenosis, cervical region; M25.512 Pain in left shoulder; M25.511 Pain in right shoulder; E78.5 Hyperlipidemia, unspecified; F17.210 Nicotine dependence, cigarettes, uncomplicated
CPT/HCPCS: 36415; 70450; 70496; 70498; 70553; 71046; 72100; 72156; 72158; 74230; 80048; 80053; 80061; 80306; 80320; 81001; 82140; 82607; 82746; 82805; 83036; 83605; 83735; 84443; 84484; 85025; 85610; 85730; 93005; 93306; 93880; 94640; 96360; 96361; 99285

== ENCOUNTER 2021-05-23 16:48 | Inpatient (IN) | payer MEDICARE, OTHER ==
[2021-05-23] MEDS ORDERED: SODIUM CHLORIDE 0.9% 1,000 ML IV STA ×2 (16:58→18:33)
[2021-05-23] MEDS ORDERED: SODIUM CHLORIDE 0.9% 500 ML 500 ML IV STA (16:58)
[2021-05-23 17:00] LABS: Glucose,Whole Blood 192 mg/dL (75-99)
[2021-05-23 17:28] LABS: Lactic Acid, Venous 1.4 mmol/L (0.7-2.0)
[2021-05-23 17:29] LABS: ALT 14 U/L (4-49); AST 24 U/L (17-59); African American GFR (CKD) >90 (>60 ml/min/1.73 sqM); Albumin 3.6 g/dL (3.5-5.0); Alkaline Phosphatase 52 U/L (38-126); Anion Gap 4 mmol/L; Blood Urea Nitrogen 14 mg/dL (9-20); Calcium 8.9 mg/dL (8.4-10.2); Carbon Dioxide 38 mmol/L (22-30); Chloride 93 mmol/L (98-107); Glucose 185 mg/dL (74-99); Magnesium 1.9 mg/dL (1.6-2.3); Non-African American GFR(CKD) >90 (>60 ml/min/1.73 sqM); Potassium 4.5 mmol/L (3.5-5.1); Sodium 135 mmol/L (137-145); Total Bilirubin 0.5 mg/dL (0.2-1.3); Total Protein 6.2 g/dL (6.3-8.2)
[2021-05-23 17:45] LABS: Partial Thromboplastin Time 23.3 sec (22.0-30.0); Prothrombin Time 10.8 sec (9.0-12.0)
[2021-05-23 17:57] LABS: Amorphous Sediment,Urine Rare /hpf; Appearance,Urine Cloudy (Clear); Bacteria,Urine Occasional /hpf; Bilirubin,Urine Negative (Negative); Blood,Urine Negative (Negative); Color,Urine Yellow; Glucose,Urine (UA) Trace (Negative); Hyaline Casts,Urine 15 /lpf (0-2); Ketones,Urine Negative (Negative); Leukocyte Esterase,Urine Negative (Negative); Mucus,Urine Occasional /hpf; Nitrite,Urine Negative (Negative); Protein,Urine 1+ (Negative); RBC,Urine 2 /hpf (0-5); Specific Gravity,Urine 1.019 (1.001-1.035); Squamous Epithelial Cell,Urine <1 /hpf (0-4); Urobilinogen,Urine <2.0 mg/dL (<2.0); WBC,Urine 3 /hpf (0-5)
[2021-05-23 18:03] LABS: Basophils % (A) 1 %; Eosinophils % (A) 0 %; HCT 44.6 % (39.0-53.0); HGB 14.8 gm/dL (13.0-17.5); Lymphocytes # (A) 2.5 k/uL (1.0-4.8); Lymphocytes % (A) 32 %; MCH 33.8 pg (25.0-35.0); MCHC 33.2 g/dL (31.0-37.0); Macrocytosis Slight; Mean Platelet Volume 7.2; Monocytes # (A) 0.7 k/uL (0-1.0); Monocytes % (A) 9 %; Neutrophils # (A) 4.4 k/uL (1.3-7.7); Neutrophils % (A) 56 %; Platelet Count 268 k/uL (150-450); RBC 4.38 m/uL (4.30-5.90); RDW 13.5 % (11.5-15.5); WBC 7.9 k/uL (3.8-10.6)
--- NOTE | 2021-05-23 18:08 | CT ---
EXAM: CT brain wo con CLINICAL HISTORY: Altered mental status. COMPARISON: None TECHNIQUE: Contiguous axial noncontrast images of the brain were obtained. Coronal and sagittal refor mats were generated and reviewed. Automated dose control was used for this exam. FINDINGS: There is no evidence for intracranial hemorrhage, mass effect or midline shift. The white matter is g rossly preserved. Ventricular size and configuration is within normal limits for degree of parenchymal volume. The paranasal sinuses demonstrate complete opacification of the left maxillary sinus with internal hy perdensity. The mastoid air cells are clear. No evidence for calvarial fracture. IMPRESSION: No acute intracranial abnormality. Left maxillary sinus disease with internal hyperdensities, which can be seen with fungal infection. R ecommend clinical correlation.
[2021-05-23 18:10] LABS: MCV 101.7 fL (80.0-100.0)
--- NOTE | 2021-05-23 18:10 | XR ---
EXAMINATION TYPE: XR chest 1V portable DATE OF EXAM: 05/23/2021 COMPARISON: 04/15/2021. HISTORY: Shortness of breath. TECHNIQUE: Single frontal view of the chest is obtained. FINDINGS: There is mild right basilar opacity. No pleural effusion, or pneumothorax seen. The cardi ac silhouette size is within normal limits. The osseous structures are intact. Nipple shadows noted . IMPRESSION: Right basilar opacity may represent atelectasis, infiltrate or aspiration changes.
[2021-05-23] MEDS ORDERED: PIPERACILLIN-TAZOBACTAM 3.375 GM in SODIUM CHLORIDE 0.9% 100 ML IVPB STA (18:18)
[2021-05-23] MEDS ORDERED: VANCOMYCIN IV PER PHARMACY 1 EACH MISC MISCELLANE PRN (18:19)
[2021-05-23] MEDS ORDERED: IPRATROPIUM-ALBUTEROL 3 ML NEB INHALATION STA (18:20)
[2021-05-23] MEDS ORDERED: VANCOMYCIN 1,000 MG in SODIUM CHLORIDE 0.9% 250 ML IVPB STA (18:21)
--- NOTE | 2021-05-23 18:29 | ED ---
SOB HPI - General Chief Complaint: Shortness of Breath Stated Complaint: SOB Time Seen by Provider: 05/23/21 16:52 Source: EMS Mode of arrival: EMS Limitations: altered mental status - History of Present Illness Initial Comments: The patient presents via EMS to the ER as priority 1 for difficulty in breathing and hypotension. He apparently was found unresponsive or with decreased responsiveness via family. Patient is unable to give any history himself due to the unresponsiveness. History is obtained per EMS. They relate that his blood pressure was 52/48 and his pulse oxygenation was 65% upon their arrival. They gave him 600 mL of IV fluids and his blood pressure normalized. He also was started on BiPAP and his oxygenation significantly improved. They also relate that he has a history of ALS and currently lives at home. Old records also reviewed and it appears as though he was here last month with somewhat similar symptomatology. Old records relate a long history of alcohol abuse as well. No family currently present for additional history. No other identifiable complaints or modifying factors. - Related Data Previous Rx's Medication Instructions Recorded Aspirin 81 mg PO DAILY@1200 #30 chew 04/19/21 Atorvastatin [Lipitor] 20 mg PO DAILY@1200 #30 tab 04/19/21 Multivitamins, Thera [Multivitamin 1 each PO DAILY@1200 #30 tab 04/19/21 (formulary)] Nicotine 21Mg/24Hr Patch [Habitrol] 1 patch TRANSDERM DAILY #30 patch 04/19/21 Thiamine [Vitamin B-1] 100 mg PO BID-W/MEALS #60 tab 04/19/21 amLODIPine [Norvasc] 10 mg PO DAILY@1200 #30 tab 04/19/21 Allergies Allergy/AdvReac Type Severity Reaction Status Date / Time No Known Allergies Allergy Verified 04/15/21 14:08 Review of Systems ROS Statement: Those systems with pertinent positive or pertinent negative responses have been documented in the HPI. ROS Other: All systems not noted in ROS Statement are negative. Past Medical History Past Medical History: CVA/TIA, Hypertension History of Any Multi-Drug Resistant Organisms: None Reported Past Surgical History: No Surgical Hx Reported Past Psychological History: No Psychological Hx Reported Smoking Status: Current every day smoker Past Alcohol Use History: Daily Past Drug Use History: None Reported General Exam - General Exam Comments Initial Comments: GENERAL: The patient is well nourished and well hydrated. VITAL SIGNS: Heart rate, blood pressure, respiratory rate reviewed as recorded in nurse's notes. EYES: Pupils are round and approximately 2 mm. Extraocular movements are intact. No conjunctival / lid redness or swelling. ENT: No external evidence of injury, swelling, or ecchymosis. Airway is patent. Throat is clear. NECK: No swelling or evidence of injury. No subcutaneous emphysema. Trachea is midline. No thyroid mass. HEART: Regular rate and rhythm. Good peripheral pulses. LUNGS/CHEST: Breath sounds are diminished bilaterally. No rales, rhonchi, or wheezes. No ecchymosis, subcutaneous emphysema, or tenderness. ABDOMEN: Abdomen soft without tenderness. No palpable masses or organomegaly. No peritoneal signs. No abdominal wall swelling or ecchymosis. EXTREMITIES: No extremity tenderness or swelling noted. NEUROLOGIC: Patient is not currently alert. He will withdraw with noxious stimuli. SKIN: No abrasions or ecchymosis is noted. No induration or masses noted. PSYCHIATRIC: Patient is not alert currently. Limitations: altered mental status Course Vital Signs 05/23/21 05/23/21 05/23/21 16:49 17:01 17:38 Temperature 96.5 F L Pulse Rate 99 110 H Respiratory 20 22 22 Rate Blood Pressure 127/92 125/77 O2 Sat by Pulse 98 100 Oximetry Medical Decision Making - Medical Decision Making Patient was seen and examined. All diagnostics were reviewed. He is placed on a surveillance monitor and no ectopy is identified. He is continued on the BiPAP and has excellent oxygenation. His blood pressure is normal upon are reviewed. His EKG shows a normal sinus rhythm at a rate of 99. There is no acute ST elevation or ST T-wave changes noted. The MA intervals 142, QRS is 90, and the QTC intervals 438. Chest x-ray is reviewed and shows a right lower lobe infiltrate. Computed tomography scan of the brain does not show any acute process. The laboratory shows a elevated CO2 as well as a decreased chloride. He is started on IV Zosyn and vancomycin for treatment of suspected pneumonia. Urine is evaluated and is doubtful for a urinary tract infection. It is felt as though the patient would benefit from admission to the hospital for continued treatment. Case is discussed with Dr. Comer and she is agreeable with admission. She will be admitted to the telemetry unit for further treatment. Per paramedics, patient is a full CODE STATUS. On the repeat examination, the patient is much more alert but it is still difficult to obtain accurate history due to him being on the BiPAP. DuoNeb treatment is ordered. ABG also is ordered and is pending. - Lab Data Result diagrams: 05/23/21 17:07 05/23/21 17:07 Lab Results 05/23/21 05/23/21 05/23/21 Range/Units 16:54 17:07 17:07 WBC 7.9 (3.8-10.6) k/uL RBC 4.38 (4.30-5.90) m/uL Hgb 14.8 (13.0-17.5) gm/dL Hct 44.6 (39.0-53.0) % MCV 101.7 H D (80.0-100.0) fL MCH 33.8 (25.0-35.0) pg MCHC 33.2 (31.0-37.0) g/dL RDW 13.5 (11.5-15.5) % Plt Count 268 (150-450) k/uL MPV 7.2 Neutrophils % 56 % Lymphocytes % 32 % Monocytes % 9 % Eosinophils % 0 % Basophils % 1 % Neutrophils # 4.4 (1.3-7.7) k/uL Lymphocytes # 2.5 (1.0-4.8) k/uL Monocytes # 0.7 (0-1.0) k/uL Eosinophils # 0.0 (0-0.7) k/uL Basophils # 0.0 (0-0.2) k/uL Macrocytosis Slight PT 10.8 (9.0-12.0) sec INR 1.0 (<1.2) APTT 23.3 (22.0-30.0) sec Sodium (137-145) mmol/L Potassium (3.5-5.1) mmol/L Chloride (98-107) mmol/L Carbon Dioxide (22-30) mmol/L Anion Gap mmol/L BUN (9-20) mg/dL Creatinine (0.66-1.25) mg/dL Est GFR (CKD-EPI)AfAm (>60 ml/min/1.73 sqM) Est GFR (CKD-EPI)NonAf (>60 ml/min/1.73 sqM) Glucose (74-99) mg/dL POC Glucose (mg/dL) 192 H (75-99) mg/dL POC Glu Vice President Supply Chain ID Subha Cook Plasma Lactic Acid Shree (0.7-2.0) mmol/L Calcium (8.4-10.2) mg/dL Phosphorus (2.5-4.5) mg/dL Magnesium (1.6-2.3) mg/dL Total Bilirubin (0.2-1.3) mg/dL AST (17-59) U/L ALT (4-49) U/L Alkaline Phosphatase (38-126) U/L Ammonia (<30) umol/L Troponin I (0.000-0.034) ng/mL Total Protein (6.3-8.2) g/dL Albumin (3.5-5.0) g/dL Urine Color Urine Appearance (Clear) Urine pH (5.0-8.0) Ur Specific Epsom (1.001-1.035) Urine Protein (Negative) Urine Glucose (UA) (Negative) Urine Ketones (Negative) Urine Blood (Negative) Urine Nitrite (Negative) Urine Bilirubin (Negative) Urine Urobilinogen (<2.0) mg/dL Ur Leukocyte Esterase (Negative) Urine RBC (0-5) /hpf Urine WBC (0-5) /hpf Ur Squamous Epith Cells (0-4) /hpf Amorphous Sediment (None) /hpf Urine Bacteria (None) /hpf Hyaline Casts (0-2) /lpf Urine Mucus (None) /hpf Coronavirus (PCR) (Not Detectd) 05/23/21 05/23/21 05/23/21 Range/Units 17:07 17:07 17:07 WBC (3.8-10.6) k/uL RBC (4.30-5.90) m/uL Hgb (13.0-17.5) gm/dL Hct (39.0-53.0) % MCV (80.0-100.0) fL MCH (25.0-35.0) pg MCHC (31.0-37.0) g/dL RDW (11.5-15.5) % Plt Count (150-450) k/uL MPV Neutrophils % % Lymphocytes % % Monocytes % % Eosinophils % % Basophils % % Neutrophils # (1.3-7.7) k/uL Lymphocytes # (1.0-4.8) k/uL Monocytes # (0-1.0) k/uL Eosinophils # (0-0.7) k/uL Basophils # (0-0.2) k/uL Macrocytosis PT (9.0-12.0) sec INR (<1.2) APTT (22.0-30.0) sec Sodium 135 L (137-145) mmol/L Potassium 4.5 (3.5-5.1) mmol/L Chloride 93 L (98-107) mmol/L Carbon Dioxide 38 H (22-30) mmol/L Anion Gap 4 mmol/L BUN 14 (9-20) mg/dL Creatinine 0.22 L (0.66-1.25) mg/dL Est GFR (CKD-EPI)AfAm >90 (>60 ml/min/1.73 sqM) Est GFR (CKD-EPI)NonAf >90 (>60 ml/min/1.73 sqM) Glucose 185 H (74-99) mg/dL POC Glucose (mg/dL) (75-99) mg/dL POC Glu Vice President Supply Chain ID Plasma Lactic Acid Shree 1.4 (0.7-2.0) mmol/L Calcium 8.9 (8.4-10.2) mg/dL Phosphorus 5.0 H (2.5-4.5) mg/dL Magnesium 1.9 (1.6-2.3) mg/dL Total Bilirubin 0.5 (0.2-1.3) mg/dL AST 24 (17-59) U/L ALT 14 (4-49) U/L Alkaline Phosphatase 52 (38-126) U/L Ammonia 27 (<30) umol/L Troponin I <0.012 (0.000-0.034) ng/mL Total Protein 6.2 L (6.3-8.2) g/dL Albumin 3.6 (3.5-5.0) g/dL Urine Color Urine Appearance (Clear) Urine pH (5.0-8.0) Ur Specific Epsom (1.001-1.035) Urine Protein (Negative) Urine Glucose (UA) (Negative) Urine Ketones (Negative) Urine Blood (Negative) Urine Nitrite (Negative) Urine Bilirubin (Negative) Urine Urobilinogen (<2.0) mg/dL Ur Leukocyte Esterase (Negative) Urine RBC (0-5) /hpf Urine WBC (0-5) /hpf Ur Squamous Epith Cells (0-4) /hpf Amorphous Sediment (None) /hpf Urine Bacteria (None) /hpf Hyaline Casts (0-2) /lpf Urine Mucus (None) /hpf Coronavirus (PCR) (Not Detectd) 05/23/21 05/23/21 Range/Units 17:07 17:26 WBC (3.8-10.6) k/uL RBC (4.30-5.90) m/uL Hgb (13.0-17.5) gm/dL Hct (39.0-53.0) % MCV (80.0-100.0) fL MCH (25.0-35.0) pg MCHC (31.0-37.0) g/dL RDW (11.5-15.5) % Plt Count (150-450) k/uL MPV Neutrophils % % Lymphocytes % % Monocytes % % Eosinophils % % Basophils % % Neutrophils # (1.3-7.7) k/uL Lymphocytes # (1.0-4.8) k/uL Monocytes # (0-1.0) k/uL Eosinophils # (0-0.7) k/uL Basophils # (0-0.2) k/uL Macrocytosis PT (9.0-12.0) sec INR (<1.2) APTT (22.0-30.0) sec Sodium (137-145) mmol/L Potassium (3.5-5.1) mmol/L Chloride (98-107) mmol/L Carbon Dioxide (22-30) mmol/L Anion Gap mmol/L BUN (9-20) mg/dL Creatinine (0.66-1.25) mg/dL Est GFR (CKD-EPI)AfAm (>60 ml/min/1.73 sqM) Est GFR (CKD-EPI)NonAf (>60 ml/min/1.73 sqM) Glucose (74-99) mg/dL POC Glucose (mg/dL) (75-99) mg/dL POC Glu Vice President Supply Chain ID Plasma Lactic Acid Shree (0.7-2.0) mmol/L Calcium (8.4-10.2) mg/dL Phosphorus (2.5-4.5) mg/dL Magnesium (1.6-2.3) mg/dL Total Bilirubin (0.2-1.3) mg/dL AST (17-59) U/L ALT (4-49) U/L Alkaline Phosphatase (38-126) U/L Ammonia (<30) umol/L Troponin I (0.000-0.034) ng/mL Total Protein (6.3-8.2) g/dL Albumin (3.5-5.0) g/dL Urine Color Yellow Urine Appearance Cloudy (Clear) Urine pH 6.0 (5.0-8.0) Ur Specific Epsom 1.019 (1.001-1.035) Urine Protein 1+ H (Negative) Urine Glucose (UA) Trace H (Negative) Urine Ketones Negative (Negative) Urine Blood Negative (Negative) Urine Nitrite Negative (Negative) Urine Bilirubin Negative (Negative) Urine Urobilinogen <2.0 (<2.0) mg/dL Ur Leukocyte Esterase Negative (Negative) Urine RBC 2 (0-5) /hpf Urine WBC 3 (0-5) /hpf Ur Squamous Epith Cells <1 (0-4) /hpf Amorphous Sediment Rare H (None) /hpf Urine Bacteria Occasional H (None) /hpf Hyaline Casts 15 H (0-2) /lpf Urine Mucus Occasional H (None) /hpf Coronavirus (PCR) Not Detected (Not Detectd) Disposition Clinical Impression: Pneumonia, Altered mental status, Respiratory failure, Hypochloremia, Elevated CO2 level, COPD (chronic obstructive pulmonary disease), ALS (amyotrophic lateral sclerosis), Hypoxia Disposition: ADMITTED IP TO THIS [facility] Condition: Fair Is patient prescribed a controlled substance at d/c from ED?: No Referrals: Torito Vanegas MD [Primary Care Provider] - 1-2 days Time of Disposition: 18:29 Decision Date: 05/23/21 Decision Time: 18:29
[2021-05-23] MEDS ORDERED: PNEUMONIA PROTOCOL UTILIZED 1 EACH MISC PO PRN (18:30)
[2021-05-23 19:04] LABS: ABG Base Excess 14.6 mmol/L; ABG Oxygen Saturation 99.9 % (94-97); ABG PH 7.23 (7.35-7.45); ABG PO2 268 mmHg (83-108); ABG TCO2 45 mmol/L (19-24); Allen Test Performed? Yes
[2021-05-23 19:14] LABS: ABG HCO3 42 mmol/L (21-25); ABG PCO2 101 mmHg (35-45)
[2021-05-23] MEDS: ENOXAPARIN 40 MG/0.4 ML SYRINGE SQ SCH (19:34)
--- NOTE | 2021-05-23 19:48 | ED ---
Medical Decision Making - Medical Decision Making DR Roberts blood gas came back showing a pH of 7.23, pCO2 of 101, pO2 of 268, and a bicarb of 42.2. The oxygenation level is decreased. The case is discussed with Dr. Esposito from pulmonology and he feels also that we should just continue with the BiPAP at this time and not intubate the patient. He agrees with decreasing the oxygen level. Patient will be admitted to the telemetry unit with pulmonology to consult. - Lab Data Result diagrams: 05/23/21 17:07 05/23/21 17:07 Lab Results 05/23/21 05/23/21 05/23/21 Range/Units 16:54 17:07 17:07 WBC 7.9 (3.8-10.6) k/uL RBC 4.38 (4.30-5.90) m/uL Hgb 14.8 (13.0-17.5) gm/dL Hct 44.6 (39.0-53.0) % MCV 101.7 H D (80.0-100.0) fL MCH 33.8 (25.0-35.0) pg MCHC 33.2 (31.0-37.0) g/dL RDW 13.5 (11.5-15.5) % Plt Count 268 (150-450) k/uL MPV 7.2 Neutrophils % 56 % Lymphocytes % 32 % Monocytes % 9 % Eosinophils % 0 % Basophils % 1 % Neutrophils # 4.4 (1.3-7.7) k/uL Lymphocytes # 2.5 (1.0-4.8) k/uL Monocytes # 0.7 (0-1.0) k/uL Eosinophils # 0.0 (0-0.7) k/uL Basophils # 0.0 (0-0.2) k/uL Macrocytosis Slight PT 10.8 (9.0-12.0) sec INR 1.0 (<1.2) APTT 23.3 (22.0-30.0) sec Sodium (137-145) mmol/L Potassium (3.5-5.1) mmol/L Chloride (98-107) mmol/L Carbon Dioxide (22-30) mmol/L Anion Gap mmol/L BUN (9-20) mg/dL Creatinine (0.66-1.25) mg/dL Est GFR (CKD-EPI)AfAm (>60 ml/min/1.73 sqM) Est GFR (CKD-EPI)NonAf (>60 ml/min/1.73 sqM) Glucose (74-99) mg/dL POC Glucose (mg/dL) 192 H (75-99) mg/dL POC Glu Director Patient Financial Services ID Subha Cook Plasma Lactic Acid Shree (0.7-2.0) mmol/L Calcium (8.4-10.2) mg/dL Phosphorus (2.5-4.5) mg/dL Magnesium (1.6-2.3) mg/dL Total Bilirubin (0.2-1.3) mg/dL AST (17-59) U/L ALT (4-49) U/L Alkaline Phosphatase (38-126) U/L Ammonia (<30) umol/L Troponin I (0.000-0.034) ng/mL NT-Pro-B Natriuret Pep pg/mL Total Protein (6.3-8.2) g/dL Albumin (3.5-5.0) g/dL Urine Color Urine Appearance (Clear) Urine pH (5.0-8.0) Ur Specific [place] (1.001-1.035) Urine Protein (Negative) Urine Glucose (UA) (Negative) Urine Ketones (Negative) Urine Blood (Negative) Urine Nitrite (Negative) Urine Bilirubin (Negative) Urine Urobilinogen (<2.0) mg/dL Ur Leukocyte Esterase (Negative) Urine RBC (0-5) /hpf Urine WBC (0-5) /hpf Ur Squamous Epith Cells (0-4) /hpf Amorphous Sediment (None) /hpf Urine Bacteria (None) /hpf Hyaline Casts (0-2) /lpf Urine Mucus (None) /hpf Coronavirus (PCR) (Not Detectd) 05/23/21 05/23/21 05/23/21 Range/Units 17:07 17:07 17:07 WBC (3.8-10.6) k/uL RBC (4.30-5.90) m/uL Hgb (13.0-17.5) gm/dL Hct (39.0-53.0) % MCV (80.0-100.0) fL MCH (25.0-35.0) pg MCHC (31.0-37.0) g/dL RDW (11.5-15.5) % Plt Count (150-450) k/uL MPV Neutrophils % % Lymphocytes % % Monocytes % % Eosinophils % % Basophils % % Neutrophils # (1.3-7.7) k/uL Lymphocytes # (1.0-4.8) k/uL Monocytes # (0-1.0) k/uL Eosinophils # (0-0.7) k/uL Basophils # (0-0.2) k/uL Macrocytosis PT (9.0-12.0) sec INR (<1.2) APTT (22.0-30.0) sec Sodium 135 L (137-145) mmol/L Potassium 4.5 (3.5-5.1) mmol/L Chloride 93 L (98-107) mmol/L Carbon Dioxide 38 H (22-30) mmol/L Anion Gap 4 mmol/L BUN 14 (9-20) mg/dL Creatinine 0.22 L (0.66-1.25) mg/dL Est GFR (CKD-EPI)AfAm >90 (>60 ml/min/1.73 sqM) Est GFR (CKD-EPI)NonAf >90 (>60 ml/min/1.73 sqM) Glucose 185 H (74-99) mg/dL POC Glucose (mg/dL) (75-99) mg/dL POC Glu Director Patient Financial Services ID Plasma Lactic Acid Shree 1.4 (0.7-2.0) mmol/L Calcium 8.9 (8.4-10.2) mg/dL Phosphorus 5.0 H (2.5-4.5) mg/dL Magnesium 1.9 (1.6-2.3) mg/dL Total Bilirubin 0.5 (0.2-1.3) mg/dL AST 24 (17-59) U/L ALT 14 (4-49) U/L Alkaline Phosphatase 52 (38-126) U/L Ammonia 27 (<30) umol/L Troponin I <0.012 (0.000-0.034) ng/mL NT-Pro-B Natriuret Pep pg/mL Total Protein 6.2 L (6.3-8.2) g/dL Albumin 3.6 (3.5-5.0) g/dL Urine Color Urine Appearance (Clear) Urine pH (5.0-8.0) Ur Specific [place] (1.001-1.035) Urine Protein (Negative) Urine Glucose (UA) (Negative) Urine Ketones (Negative) Urine Blood (Negative) Urine Nitrite (Negative) Urine Bilirubin (Negative) Urine Urobilinogen (<2.0) mg/dL Ur Leukocyte Esterase (Negative) Urine RBC (0-5) /hpf Urine WBC (0-5) /hpf Ur Squamous Epith Cells (0-4) /hpf Amorphous Sediment (None) /hpf Urine Bacteria (None) /hpf Hyaline Casts (0-2) /lpf Urine Mucus (None) /hpf Coronavirus (PCR) (Not Detectd) 05/23/21 05/23/21 05/23/21 Range/Units 17:07 17:07 17:26 WBC (3.8-10.6) k/uL RBC (4.30-5.90) m/uL Hgb (13.0-17.5) gm/dL Hct (39.0-53.0) % MCV (80.0-100.0) fL MCH (25.0-35.0) pg MCHC (31.0-37.0) g/dL RDW (11.5-15.5) % Plt Count (150-450) k/uL MPV Neutrophils % % Lymphocytes % % Monocytes % % Eosinophils % % Basophils % % Neutrophils # (1.3-7.7) k/uL Lymphocytes # (1.0-4.8) k/uL Monocytes # (0-1.0) k/uL Eosinophils # (0-0.7) k/uL Basophils # (0-0.2) k/uL Macrocytosis PT (9.0-12.0) sec INR (<1.2) APTT (22.0-30.0) sec Sodium (137-145) mmol/L Potassium (3.5-5.1) mmol/L Chloride (98-107) mmol/L Carbon Dioxide (22-30) mmol/L Anion Gap mmol/L BUN (9-20) mg/dL Creatinine (0.66-1.25) mg/dL Est GFR (CKD-EPI)AfAm (>60 ml/min/1.73 sqM) Est GFR (CKD-EPI)NonAf (>60 ml/min/1.73 sqM) Glucose (74-99) mg/dL POC Glucose (mg/dL) (75-99) mg/dL POC Glu Director Patient Financial Services ID Plasma Lactic Acid Shree (0.7-2.0) mmol/L Calcium (8.4-10.2) mg/dL Phosphorus (2.5-4.5) mg/dL Magnesium (1.6-2.3) mg/dL Total Bilirubin (0.2-1.3) mg/dL AST (17-59) U/L ALT (4-49) U/L Alkaline Phosphatase (38-126) U/L Ammonia (<30) umol/L Troponin I (0.000-0.034) ng/mL NT-Pro-B Natriuret Pep 701 pg/mL Total Protein (6.3-8.2) g/dL Albumin (3.5-5.0) g/dL Urine Color Yellow Urine Appearance Cloudy (Clear) Urine pH 6.0 (5.0-8.0) Ur Specific [place] 1.019 (1.001-1.035) Urine Protein 1+ H (Negative) Urine Glucose (UA) Trace H (Negative) Urine Ketones Negative (Negative) Urine Blood Negative (Negative) Urine Nitrite Negative (Negative) Urine Bilirubin Negative (Negative) Urine Urobilinogen <2.0 (<2.0) mg/dL Ur Leukocyte Esterase Negative (Negative) Urine RBC 2 (0-5) /hpf Urine WBC 3 (0-5) /hpf Ur Squamous Epith Cells <1 (0-4) /hpf Amorphous Sediment Rare H (None) /hpf Urine Bacteria Occasional H (None) /hpf Hyaline Casts 15 H (0-2) /lpf Urine Mucus Occasional H (None) /hpf Coronavirus (PCR) Not Detected (Not Detectd) Disposition Clinical Impression: Pneumonia, Altered mental status, Respiratory failure, Hypochloremia, Elevated CO2 level, COPD (chronic obstructive pulmonary disease), ALS (amyotrophic lateral sclerosis), Hypoxia Disposition: ADMITTED IP TO THIS HOSP Condition: Fair
[2021-05-23] MEDS ORDERED: EPINEPHRINE INHALATION PRN (20:37)
[2021-05-24] MEDS ORDERED: PIPERACILLIN-TAZOBACTAM 3.375 GM in SODIUM CHLORIDE 0.9% 100 ML IVPB SCH ×2
--- NOTE | 2021-05-24 00:50 | P.HPIM ---
History of Present Illness H&P Date: 05/23/21 Patient is a 65-year-old male with a PMH of hypertension, hyperlipidemia, EtOH abuse, and a recent suspicion of motor-neuron disease (specifically ALS) during hospitalization in 05/01 who was brought into the emergency room by his sons due to weakness and unresponsiveness at home. The patient is unable to provide any meaningful history at the time of evaluation as he is very lethargic area history thereby obtained from the chart review and from the sense the bedside. One of the sons lives with the patient, and takes care of all of his ADLs. He notes that following the patient's recent discharge from the hospital, they were unable to follow up with a Neurologist since the patient did not wish to see any physicians. The son reports that his father was previously able to walk inside the house with assistance with a walker but since his discharge, has been getting progressively weaker and is now essentially wheelchair bound. The patient is also been more confused throughout the day today as per the son and has been eating and drinking very little with his appetite worsening with each passing day. The son notes that he was helping his father use the restroom when he was unable to bear weight of any kind and essentially became unresponsive at which time he activated EMS. As per the ED documentation, upon EMS arrival, the patient was noted to be hypertensive with BP 52/48 and SpO2 65%. He was given 600 miles of IV fluids en-route to the hospital with subsequent normalization of his blood pressure. He underwent an extensive evaluation in emergency room with a CT brain that revealed left maxillary sinus disease with chest x-ray showing right basilar opacity likely atelectasis versus infiltrate. EKG revealed a normal sinus rhythm at 99 bpm. Laboratory evaluation was remarkable for a pCO2 of 101 CO2 38, glucose 185. Review of systems: Pertinent positives and negatives as discussed in HPI, a complete review of systems was performed and all other systems are negative. Physical examination: General: frail male, appears older than stated age, on Bipap Derm: no unusual rashes/lesions no unusual ecchymoses, warm, dry Head: atraumatic, normocephalic, symmetric Eyes: EOMI, no lid lag, anicteric sclera, pupils equal round reactive to light ENT: Nose and ears atraumatic, no thrush, no pharyngeal erythema Neck: No thyromegaly, no cervical lymphadenopathy, trachea midline, supple Mouth: no lip lesion, mucus membranes moist Cardiovascular: S1S2 reg, no murmur, positive posterior tibial pulse bilateral, no edema, capillary refill less than 2 seconds Lungs: CTA bilateral, no rhonchi, no rales , no accessory muscle use Abdominal: soft, nontender to palpation, no guarding, no appreciable organomegaly, normal bowel sounds Ext: no gross muscle atrophy, muscle strength 5 out of 5 in all 4 extremities grossly, no contractures, Neuro: CN II-XI grossly intact, light touch intact all 4 extremities, finger to nose within normal limits, Psych: Alert, oriented, appropriate affect Assessment/plan Altered mental status -Suspected secondary to hypercapnic respiratory failure in setting of worsening neuromuscular disease -Continue with BiPAP -Neurology consult -Family requesting hospice evaluation due to the patient's worsening quality of life Hypotension, very fluid responsive -Suspected secondary to dehydration -Continue with IV fluids -Hold off on antibiotics at this time DVT prophylaxis -Lovenox The patient is admitted with an anticipated greater than 2 midnight stay for evaluation of AMS CODE STATUS: No Code (discussed the patient's care and the patient's sons bedside. They reported that their father had expressed his wishes on multiple occasions that he did not wish to be kept alive on machines and that his quality of life was his highest priority. They further state that in light of his suspected neuromuscular disorder with quick deterioration, that they wish for hospice evaluation. They requested for patient to be made a No-Code) Discussed with: Family Anticipated discharge date: 2-[address]: Home w/ hospice Past Medical History Past Medical History: Hypertension Additional Past Medical History / Comment(s): ALS diagnosed 1 month ago History of Any Multi-Drug Resistant Organisms: None Reported Past Surgical History: No Surgical Hx Reported Past Psychological History: No Psychological Hx Reported Smoking Status: Current every day smoker Past Alcohol Use History: Daily Additional Past Alcohol Use History / Comment(s): quit using alcohol 2 weeks ago. Drank 6-8 beers/day prior to quitting. smokes 1-2 cigarettes/day Past Drug Use History: None Reported Medications and Allergies Home Medications Medication Instructions Recorded Confirmed Type amLODIPine [Norvasc] 10 mg PO DAILY@1200 #30 tab 04/19/21 05/23/21 Rx EPINEPHrine [Primatene Mist] 1 puff INHALATION RT-QID PRN 05/23/21 05/23/21 History Ipratropium-Albuterol Nebulize 3 ml INHALATION RT-QID 05/23/21 05/23/21 History [Duoneb 0.5 mg-3 mg/3 ml Soln] Allergies Allergy/AdvReac Type Severity Reaction Status Date / Time No Known Allergies Allergy Verified 05/23/21 18:38 Physical Exam Vitals: Vital Signs Temp Pulse Pulse Resp BP BP Pulse Ox 05/23/21 20:05 98 F 105 H 19 129/96 99 05/23/21 19:45 110 H 18 113/78 100 05/23/21 19:25 97.9 F 112 H 18 98/75 100 05/23/21 19:23 110 H 05/23/21 19:16 114 H 05/23/21 19:00 111 H 22 101/73 99 05/23/21 18:00 115 H 22 99/71 99 05/23/21 17:38 110 H 22 125/77 100 05/23/21 17:01 22 05/23/21 16:49 96.5 F L 99 20 127/92 98 Intake and Output 05/23/21 05/23/21 05/23/21 06:59 14:59 22:59 Output Total 300 Balance -300 Output: Urine 300 Uretheral (Dodson) 100 Other: Weight 54.431 kg Results CBC & Chem 7: 05/23/21 17:07 05/23/21 17:07 Labs: Abnormal Lab Results - Last 24 Hours (Table) 05/23/21 05/23/21 05/23/21 Range/Units 16:54 17:07 17:07 MCV 101.7 H D (80.0-100.0) fL ABG pH (7.35-7.45) ABG pCO2 (35-45) mmHg ABG pO2 (83-108) mmHg ABG HCO3 (21-25) mmol/L ABG Total CO2 (19-24) mmol/L ABG O2 Saturation (94-97) % Sodium 135 L (137-145) mmol/L Chloride 93 L (98-107) mmol/L Carbon Dioxide 38 H (22-30) mmol/L Creatinine 0.22 L (0.66-1.25) mg/dL Glucose 185 H (74-99) mg/dL POC Glucose (mg/dL) 192 H (75-99) mg/dL Phosphorus 5.0 H (2.5-4.5) mg/dL Total Protein 6.2 L (6.3-8.2) g/dL Urine Protein (Negative) Urine Glucose (UA) (Negative) Amorphous Sediment (None) /hpf Urine Bacteria (None) /hpf Hyaline Casts (0-2) /lpf Urine Mucus (None) /hpf 05/23/21 05/23/21 Range/Units 17:26 19:01 MCV (80.0-100.0) fL ABG pH 7.23 L (7.35-7.45) ABG pCO2 101 H* (35-45) mmHg ABG pO2 268 H (83-108) mmHg ABG HCO3 42 H* (21-25) mmol/L ABG Total CO2 45 H (19-24) mmol/L ABG O2 Saturation 99.9 H (94-97) % Sodium (137-145) mmol/L Chloride (98-107) mmol/L Carbon Dioxide (22-30) mmol/L Creatinine (0.66-1.25) mg/dL Glucose (74-99) mg/dL POC Glucose (mg/dL) (75-99) mg/dL Phosphorus (2.5-4.5) mg/dL Total Protein (6.3-8.2) g/dL Urine Protein 1+ H (Negative) Urine Glucose (UA) Trace H (Negative) Amorphous Sediment Rare H (None) /hpf Urine Bacteria Occasional H (None) /hpf Hyaline Casts 15 H (0-2) /lpf Urine Mucus Occasional H (None) /hpf Thrombosis Risk Factor Assmnt - Choose All That Apply Each Risk Factor Represents 2 Points: Age 61-74 years Thrombosis Risk Factor Assessment Total Risk Factor Score: 2 Thrombosis Risk Factor Assessment Level: Low Risk
[2021-05-24] MEDS ORDERED: HALOPERIDOL LACTATE 5 MG/ML 1 ML VIAL IM STA (01:17)
[2021-05-24] MEDS ORDERED: VANCOMYCIN 1,000 MG in SODIUM CHLORIDE 0.9% 250 ML IVPB SCH (02:00)
[2021-05-24 07:22] LABS: African American GFR (CKD) >90 (>60 ml/min/1.73 sqM); Anion Gap 4 mmol/L; Blood Urea Nitrogen 10 mg/dL (9-20); Calcium 9.3 mg/dL (8.4-10.2); Carbon Dioxide 37 mmol/L (22-30); Chloride 96 mmol/L (98-107); Glucose 97 mg/dL (74-99); Non-African American GFR(CKD) >90 (>60 ml/min/1.73 sqM); Potassium 4.2 mmol/L (3.5-5.1); Sodium 137 mmol/L (137-145)
[2021-05-24] MEDS: IPRATROPIUM-ALBUTEROL 3 ML NEB INHALATION PRN ×3 (08:29→16:29)
[2021-05-24] MEDS: ENOXAPARIN 40 MG/0.4 ML SYRINGE SQ SCH (09:17)
[2021-05-24 09:20] VITALS: RESP 24
[2021-05-24 11:13] VITALS: BMI 19.6
[2021-05-24] MEDS ORDERED: amLODIPine 10 MG TAB PO SCH (12:00)
--- NOTE | 2021-05-24 14:18 | P.PN ---
Subjective Progress Note Date: 05/24/21 Patient was seen and evaluated by me this morning. He was still on BiPAP. He was awake and alert. Objective - Vital Signs Vital signs: Vital Signs Temp 98.3 F 05/24/21 08:00 Pulse 108 H 05/24/21 12:30 Resp 24 05/24/21 11:25 BP 122/77 05/24/21 11:25 Pulse Ox 98 05/24/21 11:25 Intake & Output 05/23/21 05/24/21 05/24/21 18:59 06:59 18:59 Output Total 100 610 Balance -100 -610 Weight 54.431 kg 53.5 kg 53.5 kg Output: Urine 100 610 Uretheral (Dodson) 100 Other: Voiding Method Indwelling Catheter # Voids 1 # Bowel Movements 1 - Exam General: The patient is awake and alert, he appears cachectic Eye: there is normal conjunctiva bilaterally. Neck: The neck is supple, there is no JVD. Cardiovascular: Normal S1-S2, no S3-S4, no murmurs. Respiratory: Lungs with BiPAP sounds to anterior chest auscultation Gastrointestinal: Abdomen is soft, nontender Musculoskeletal: There is no pedal edema. Skin: Skin is warm and dry - Labs CBC & Chem 7: 05/23/21 17:07 05/24/21 06:34 Labs: Abnormal Lab Results - Last 24 Hours (Table) 05/23/21 05/23/21 05/23/21 Range/Units 16:54 17:07 17:07 MCV 101.7 H D (80.0-100.0) fL ABG pH (7.35-7.45) ABG pCO2 (35-45) mmHg ABG pO2 (83-108) mmHg ABG HCO3 (21-25) mmol/L ABG Total CO2 (19-24) mmol/L ABG O2 Saturation (94-97) % Sodium 135 L (137-145) mmol/L Chloride 93 L (98-107) mmol/L Carbon Dioxide 38 H (22-30) mmol/L Creatinine 0.22 L (0.66-1.25) mg/dL Glucose 185 H (74-99) mg/dL POC Glucose (mg/dL) 192 H (75-99) mg/dL Phosphorus 5.0 H (2.5-4.5) mg/dL Total Protein 6.2 L (6.3-8.2) g/dL Urine Protein (Negative) Urine Glucose (UA) (Negative) Amorphous Sediment (None) /hpf Urine Bacteria (None) /hpf Hyaline Casts (0-2) /lpf Urine Mucus (None) /hpf 05/23/21 05/23/21 05/24/21 Range/Units 17:26 19:01 06:34 MCV (80.0-100.0) fL ABG pH 7.23 L (7.35-7.45) ABG pCO2 101 H* (35-45) mmHg ABG pO2 268 H (83-108) mmHg ABG HCO3 42 H* (21-25) mmol/L ABG Total CO2 45 H (19-24) mmol/L ABG O2 Saturation 99.9 H (94-97) % Sodium (137-145) mmol/L Chloride 96 L (98-107) mmol/L Carbon Dioxide 37 H (22-30) mmol/L Creatinine 0.30 L (0.66-1.25) mg/dL Glucose (74-99) mg/dL POC Glucose (mg/dL) (75-99) mg/dL Phosphorus (2.5-4.5) mg/dL Total Protein (6.3-8.2) g/dL Urine Protein 1+ H (Negative) Urine Glucose (UA) Trace H (Negative) Amorphous Sediment Rare H (None) /hpf Urine Bacteria Occasional H (None) /hpf Hyaline Casts 15 H (0-2) /lpf Urine Mucus Occasional H (None) /hpf Assessment and Plan Assessment: This is a 65-year-old male with a very complex past medical history noted below significant for suspected ALS who presented to the emergency room with worsening shortness of breath and weakness. Patient was evaluated in the ER and admitted to the hospital for further management of his medical problems noted below 1. Acute hypoxic and hypercapnic respiratory failure 2. Toxo metabolic encephalopathy 3. Dehydration with mild hypotension on this sensation treated with aggressive IV fluid hydration 4. History of heavy alcohol abuse 5. Suspected underlying motoneuron disease/ALS suspected by neurology last admission that patient did not follow-up with the specialty clinic as directed 6. Chronic and severe protein/calorie malnutrition Today, I reviewed his medication list and lab work results. Continue current management. Awaiting patient and his family to decide on comfort care/hospice. Patient is DO NOT RESUSCITATE/DO NOT INTUBATE
--- NOTE | 2021-05-24 14:20 | P.PN ---
Progress Note - Text Progress Note Date: 05/24/21 Today, I had a prolonged meeting with the patient and his son Jacky who is his DURABLE POWER OF DIRECTOR OF VALUATION. We discussed this current guarded prognosis. We also discussed hospice philosophy and comfort care. Patient and his son understand the guarded prognosis. Patient was able to contribute to the discussion that he appeared very confused and clearly does not understand the options of comfort care versus continuing aggressive medical management. His son is very reasonable and was agreeable to pursue comfort care. Patient is DO NOT RESUSCITATE/DO NOT INTUBATE. His son asked me to wait until the evening so that his brother would be able to come see his father was concerned that patient may deteriorate quickly off of the BiPAP. We will continue current management otherwise. Awaiting other family members to arrive. Plan to transition to comfort care and possibly hospice tonight. Time spent > 16 minutes
[2021-05-24 16:12] VITALS: BP 121/75; TEMP 98.1
[2021-05-24] MEDS ORDERED: LORazepam 2 MG/ML INJ IV STA (16:24)
[2021-05-24 16:38] VITALS: PULSE 104
--- NOTE | 2021-05-25 11:24 | P.DS ---
Providers Date of admission: 05/23/21 18:30 Expected date of discharge: 05/25/21 Attending physician: Margie Bailey DO Consults: 05/24/21 00:16 Consult Physician Urgent Consulting Provider: Harish Esposito Consult Reason/Comments: Weakness, suspected ALS Do you want consulting provider notified?: Yes Primary care physician: Torito Vanegas MD Hospital Course: This is a 65-year-old male with a very complex past medical history noted below significant for suspected ALS who presented to the emergency room with worsening shortness of breath and weakness. Patient was evaluated in the ER and admitted to the hospital for further management of his medical problems noted below. Patient's overall condition continued to deteriorate and he was requiring BiPAP for respiratory support. Patient and his son who is his DURABLE POWER OF FOLD SKIVER elected to pursue comfort measures. He was seen by the hospice team and enrolled in hospice. He eventually . For exact time of that please refer to the nursing staff documentation. Below is a list of his medical problems during this admission. 1. Acute hypoxic and hypercapnic respiratory failure 2. Toxo metabolic encephalopathy 3. Dehydration with mild hypotension on this sensation treated with aggressive IV fluid hydration 4. History of heavy alcohol abuse 5. Suspected underlying motoneuron disease/ALS suspected by neurology last admission that patient did not follow-up with the specialty clinic as directed 6. Chronic and severe protein/calorie malnutrition Patient Condition at Discharge: Fair Plan - Discharge Summary Discharge Rx Participant: No New Discharge Prescriptions: No Action Ipratropium-Albuterol Nebulize [Duoneb 0.5 mg-3 mg/3 ml Soln] 3 ml INHALATION RT-QID EPINEPHrine [Primatene Mist] 1 puff INHALATION RT-QID PRN PRN Reason: Shortness Of Breath amLODIPine [Norvasc] 10 mg PO DAILY Discharge Medication List EPINEPHrine [Primatene Mist] 1 puff INHALATION RT-QID PRN 05/23/21 [History] Ipratropium-Albuterol Nebulize [Duoneb 0.5 mg-3 mg/3 ml Soln] 3 ml INHALATION RT-QID 05/23/21 [History] amLODIPine [Norvasc] 10 mg PO DAILY 05/24/21 [History] Follow up Appointment(s)/Referral(s): Torito Vanegas MD [Primary Care Provider] - 1-2 days Discharge Disposition: DISCH TO [facility]
== END 2021-05-24 17:53 | disposition hospice, inpatient (51) | DRG 189 ==
LOC: EC 16:48 → 3SCARD 18:30
PROVIDERS: ADMIT Internal Medicine; ATTEND Internal Medicine
PROC: 5A09357 Assistance with Respiratory Ventilation, Less than 24 Consecutive Hours, Continuous Positive Airway Pressure (ICD-10-PCS; principal; 2021-05-23)
DX: J96.01 Acute respiratory failure with hypoxia (principal); G92 Toxic encephalopathy; E43 Unspecified severe protein-calorie malnutrition; J18.9 Pneumonia, unspecified organism; G12.21 Amyotrophic lateral sclerosis; R64 Cachexia; J44.0 Chronic obstructive pulmonary disease with (acute) lower respiratory infection; Z68.1 Body mass index [BMI] 19.9 or less, adult; I95.9 Hypotension, unspecified; J96.02 Acute respiratory failure with hypercapnia; Z66 Do not resuscitate; Z51.5 Encounter for palliative care; Z20.822 Contact with and (suspected) exposure to COVID-19; E87.8 Other disorders of electrolyte and fluid balance, not elsewhere classified; I10 Essential (primary) hypertension; E78.5 Hyperlipidemia, unspecified; J32.0 Chronic maxillary sinusitis; E86.0 Dehydration; F10.11 Alcohol abuse, in remission; F17.210 Nicotine dependence, cigarettes, uncomplicated; Z79.82 Long term (current) use of aspirin; Z79.899 Other long term (current) drug therapy; Z99.3 Dependence on wheelchair; Z86.73 Personal history of transient ischemic attack (TIA), and cerebral infarction without residual deficits
CPT/HCPCS: 36415; 36600; 70450; 71045; 80048; 80053; 81001; 82140; 82805; 83605; 83735; 83880; 84100; 84484; 85025; 85610; 85730; 87040; 87635; 93005; 94640; 94660; 99285

== ENCOUNTER 2021-05-24 15:07 | Inpatient (IN) | payer MEDICAID ==
[2021-05-24] MEDS ORDERED: MORPHINE SULFATE 2 MG/ML SYRINGE IV PRN (15:14)
[2021-05-24] MEDS ORDERED: GLYCOPYRROLATE 0.2 MG/ML 2 ML VIAL IVP PRN (15:14)
[2021-05-24] MEDS ORDERED: ACETAMINOPHEN SUPPOSITORY 650 MG SUPP RECTAL PRN (15:14)
[2021-05-24] MEDS ORDERED: ATROPINE OPHTH SOLN 1% 5ML BTL SUBLINGUAL PRN (15:14)
[2021-05-24] MEDS ORDERED: LORazepam 2 MG/ML INJ IV PRN (15:14)
[2021-05-24] MEDS ORDERED: ONDANSETRON 4 MG/2 ML VIAL IVP PRN (15:14)
[2021-05-24] MEDS ORDERED: SCOPOLAMINE 1.5MG/72HR PATCH TRANSDERM SCH (15:15)
[2021-05-24] MEDS ORDERED: MORPHINE SULFATE (100 MG/2 ML) 100 MG in SODIUM CHLORIDE 0.9% 100 ML IV SCH (15:15)
[2021-05-24 21:12] VITALS: PULSE 110
[2021-05-24 21:32] VITALS: RESP 16
== END 2021-05-24 22:53 | disposition expired | DRG 951 ==
LOC: 3SCARD 18:30
PROVIDERS: ADMIT Internal Medicine; ATTEND Internal Medicine
DX: Z51.5 Encounter for palliative care (principal); G12.21 Amyotrophic lateral sclerosis; I95.9 Hypotension, unspecified; Z66 Do not resuscitate; I10 Essential (primary) hypertension; E78.5 Hyperlipidemia, unspecified; F10.11 Alcohol abuse, in remission; E86.0 Dehydration; F17.210 Nicotine dependence, cigarettes, uncomplicated; Z79.899 Other long term (current) drug therapy; Z99.3 Dependence on wheelchair